=== PATIENT | female | born 1940 | race Caucasian/White ===

== ENCOUNTER 2020-02-21 14:38 | Inpatient (IN) | payer MEDICARE, SELFPAY ==
[2020-02-21] VITALS (17 sets, daily range): BP systolic 106–175; BP diastolic 67–100; PULSE 99–130; RESP 17–24; TEMP 35.6–36.3; O2SAT 91–95; BMI 26.6
--- NOTE | ~2020-02-21 | XR_ITS ---
EXAMINATION: XR chest PICC line DATE: 02/24/2020 17:59 INDICATION: PICC line placement TECHNIQUE: frontal view of the chest was obtained. COMPARISON: Chest radiograph dated 02/24/2020 at 4:59 AM FINDINGS: Right upper extremity peripherally inserted central venous catheter (PICC) tip at the caudal superio r vena cava near the cavoatrial junction. Endotracheal tube tip 0.7 cm above the joseph. Nasogastric tube extends below the left hemidiaphragm with distal tip collimated off the study. Spinal stimulato r leads project over the mid to lower thoracic spine with distal tips at the level of the T6 vertebra l body. Gradient of hazy airspace opacities in the bilateral mid to lower lung zones with obscuration of the diaphragm consistent with small to moderate size bilateral posteriorly layering pleural effusions. Co nsolidation at the lung bases which could represent associated atelectasis and/or pneumonia. No pneum othorax. The cardiomediastinal silhouette is normal. IMPRESSION: 1. Lines and tubes in expected position as detailed above. 2. Unchanged small to moderate size bilateral pleural effusions with associated bibasilar atelectasis and/or pneumonia. Reviewed, dictated and finalized at location A.
--- NOTE | ~2020-02-21 | CT_ITS ---
EXAMINATION: CTA chest PE protocol DATE: 02/21/2020 16:49 INDICATION: Shortness of breath and elevated d-dimer TECHNIQUE: Computed tomography angiography (CTA) of the chest was performed with 100 mL Omnipaque-350 intravenous contrast timed to evaluate the pulmonary arteries. Coronal maximum intensity projection 3D-reconstructions were created by the technologist. The dose-length product (DLP) was 211.96 mGy-cm. Automated exposure control and iterative reconstruction technique were employed. COMPARISON: None. FINDINGS: The pulmonary arteries are well-opacified. Motion artifact limits evaluation of peripheral subsegmental pulmonary arterial branches. There are small pleural effusions. Airspace opacities are p resent in the lower lobes. There is a moderate-sized hiatal hernia. The heart size is normal. No path ologically enlarged thoracic lymph nodes are identified. There is a 4.3 cm cyst of the left kidney. N eurostimulator leads are present in the central spinal canal the midthoracic spine. IMPRESSION: 1. No pulmonary embolism identified, sensitivity of peripheral subsegmental arterial branches limited by motion artifact. 2. Small pleural effusions. 3. Airspace opacities of the lower lobes, likely atelectasis and pneumonia. Reviewed, dictated and finalized at location A. IMPRESSION: 1. No pulmonary embolism identified, sensitivity of peripheral subsegmental art erial branches limited by motion artifact. 2. Small pleural effusions. 3. Airspace opacities of the lower lobes, likely atelectasis and pneumonia.
--- NOTE | ~2020-02-21 | XR_ITS ---
EXAMINATION: XR chest 1V portable EXAM DATE: 02/24/2020 06:07 INDICATION: Intubated. Respiratory failure. TECHNIQUE: Portable AP frontal chest x-ray was obtained. Comparison is made to prior examination from 02/23/2020, 02/20. FINDINGS: Endotracheal tube tip is 2 centimeters above the joseph (ideal range is between 2 to 5 cm). There is a nasogastric tube seen with tip collimated off the study, but below the left hemidiaphrag m. There are small to moderate bilateral layering pleural effusions. There is moderate amount of bilater al infrahilar edema and/or pneumonia. No pneumothorax. Cardiomediastinal silhouette is normal. The macy goldy are osteopenic. There are bony degenerative changes. Spine stimulator leads. Pleural effusions m ay have increased in size. IMPRESSION: 1. Moderate amount of bibasilar pneumonia and/or edema. 2. Small to moderate pleural effusions. Reviewed, dictated and finalized at location A.
--- NOTE | ~2020-02-21 | XR_ITS ---
EXAMINATION: XR chest ET placement EXAM DATE: 02/23/2020 10:36 INDICATION: Intubated. Respiratory failure. TECHNIQUE: Portable AP frontal chest x-ray was obtained. Comparison is made to prior examination from 02/21/2020. FINDINGS: Endotracheal tube tip is 1-2 centimeters above the joseph (ideal range is between 2 to 5 cm ). There is a nasogastric tube seen with tip collimated off the study, but below the left hemidiaphr agm. There are small bilateral pleural effusions unchanged. There has been development of moderate amount of bilateral infrahilar edema and/or pneumonia. No pneumothorax. Cardiomediastinal silhouette is norm al. The bones are osteopenic. There are bony degenerative changes. IMPRESSION: 1. ET tube above joseph, could be safely retracted 1 cm. 2. Developing moderate amount of bibasilar pneumonia and/or edema. 3. Small pleural effusions. Reviewed, dictated and finalized at location A.
--- NOTE | ~2020-02-21 | XR_ITS ---
XR chest 1V portable EXAM DATE: 02/27/2020 06:28 INDICATION: Intubated. Respiratory failure. TECHNIQUE: Portable AP frontal chest x-ray was obtained. Comparison is made to prior examination from 02/25. FINDINGS: Endotracheal tube tip is 1 centimeters above the joseph (ideal range is between 2 to 5 cm). There is a left-sided PICC line with tip projecting over the cavoatrial junction. Feeding tube tip and side-port project over the gastric bubble, adequate. Previously suspected small to moderate moderate pleural effusions may still be present but in subpulm onic position on this semiupright projection. No evidence of free air under the diaphragm. There is m oderate amount of bilateral infrahilar edema and/or pneumonia. No pneumothorax. The cardiac silhouett e is enlarged. The bones are osteopenic. There are bony degenerative changes. Spine stimulator lead s. Similar appearance on this examination compared to 02/24 x-ray. Compared to 02/25 appearance somewhat i mproved but could be partially technical. IMPRESSION: 1. Moderate bilateral pneumonia and/or edema. 2. Probable small to moderate subpulmonic pleural effusions. Reviewed, dictated and finalized at location A.
--- NOTE | ~2020-02-21 | XR_ITS ---
XR chest 1V portable EXAM DATE: 02/26/2020 04:22 INDICATION: Intubated. Respiratory failure. TECHNIQUE: Portable AP frontal chest x-ray was obtained. Comparison is made to prior examination from 02/23. FINDINGS: Endotracheal tube tip is 1 centimeters above the joseph (ideal range is between 2 to 5 cm). There is a nasogastric tube seen with tip collimated off the study, but below the left hemidiaphrag m. There is a left-sided PICC line with tip projecting over the cavoatrial junction. There are moderate bilateral layering pleural effusions. There is extensive amount of bilateral infra hilar edema and/or pneumonia. No pneumothorax. The cardiac silhouette is enlarged. The bones are os teopenic. There are bony degenerative changes. Spine stimulator leads. Compared to 02/24, significant progression in opacification over lung zones, likely a pleural effusion s and acute airspace disease. Cardiac silhouette is larger, others more pulmonary vascular congestion . IMPRESSION: 1. Progression of extensive pneumonia and/or edema and likely increasing pleural effusions. 2. Small to moderate pleural effusions. Reviewed, dictated and finalized at location A. IMPRESSION: 1. Progression of extensive pneumonia and/or edema and likely increasing pleur al effusions. 2. Small to moderate pleural effusions.
--- NOTE | ~2020-02-21 | XR_ITS ---
XR chest 1V portable EXAM DATE: 02/28/2020 06:07 INDICATION: Intubated. Respiratory failure. TECHNIQUE: Portable AP frontal chest x-ray was obtained. Comparison is made to prior examination from 02/25, 02/26. FINDINGS: Endotracheal tube tip is 2 centimeters above the joseph (ideal range is between 2 to 5 cm). There is a left-sided PICC line with tip projecting over the cavoatrial junction. Feeding tube tip and side-port project over the gastric bubble, adequate. Small to moderate right pleural effusion. There is moderate amount of bilateral perihilar edema and/o r pneumonia. No pneumothorax. The cardiac silhouette is enlarged. The bones are osteopenic. There a re bony degenerative changes. Spine stimulator leads. Accounting for differences in technique, there is no significant interval change. IMPRESSION: 1. Moderate perihilar pneumonia and/or edema. 2. Small to moderate right pleural effusion. Reviewed, dictated and finalized at location A.
--- NOTE | ~2020-02-21 | XR_ITS ---
EXAMINATION: XR chest 2V DATE: 02/21/2020 15:44 INDICATION: Shortness of breath, COPD TECHNIQUE: PA and lateral views of the chest are obtained. COMPARISON: 06/19/2017 FINDINGS: The lungs are hyperinflated. There are airspace opacities of the lung bases. Small pleural effusions are present. There is no pneumothorax. The cardiomediastinal silhouette is normal. There is mild thoracic spondylosis. Spine stimulator leads project posteriorly in the central spinal canal of the mid thoracic spine. IMPRESSION: 1. Small pleural effusions. 2. Minimal bibasilar airspace opacities, likely atelectasis. Reviewed, dictated and finalized at location A.
--- NOTE | ~2020-02-21 | CT_ITS ---
EXAMINATION: CT brain wo con DATE: 02/27/2020 14:35 INDICATION: Encephalopathy. TECHNIQUE: Computed tomography (CT) of the head was performed without intravenous contrast. The mA wa s adjusted according to patient size. Iterative reconstruction technique was employed. The dose-lengt h product was 605.33 mGy-cm. COMPARISON: None FINDINGS: There is a 3.4 x 3.3 cm arachnoid cyst anterior to left temporal lobe. There are scattered areas of low attenuation in the cerebral white matter. There is no intracranial hemorrhage, acute inf arction, or abnormal intracranial mass lesion. The ventricles are normal in size. The paranasal sinus es are clear. There is a trace right mastoid effusion. The orbits are normal. IMPRESSION: 1. Extensive nonspecific cerebral white matter disease, which likely represents chronic small vessel ischemic disease. Reviewed, dictated and finalized at location A.
--- NOTE | ~2020-02-21 | XR_ITS ---
EXAMINATION: XR abdomen NG/feed tube insert EXAM DATE: 02/23/2020 10:36 INDICATION: Feeding placement. TECHNIQUE: Frontal projection(s) of the abdomen for interpretation. There is no prior study for maria tenorio. FINDINGS: Feeding tube tip and side-port project over gastric body and cardia respectively, adequate . There is spine stimulator device. Nonobstructive upper abdominal bowel gas pattern. Moderate lumbar levoscoliosis. IMPRESSION: 1. Feeding tube in position. Reviewed, dictated and finalized at location A.
--- NOTE | ~2020-02-21 | XR_ITS ---
EXAMINATION: XR abdomen obstructive series EXAM DATE: 02/28/2020 08:04 INDICATION: Distended abdomen. TECHNIQUE: Frontal projection(s) of the abdomen for interpretation. Comparison is made to prior exami nation from 02/22. FINDINGS: Feeding tube is in position. Interval development of moderate to large amount of colonic ga s throughout the colon, with paucity of stool. No evidence of small bowel dilation/obstruction. There is no organomegaly. The bones are osteopenic. There are bony degenerative changes. Spine stimulator device. IMPRESSION: Moderate to large amount of colonic gas. Reviewed, dictated and finalized at location A.
--- NOTE | ~2020-02-21 | XR_ITS ---
EXAMINATION: XR chest 1V portable EXAM DATE: 02/25/2020 06:02 INDICATION: Intubated. Respiratory failure. TECHNIQUE: Portable AP frontal chest x-ray was obtained. Comparison is made to prior examination from 02/23. FINDINGS: Endotracheal tube tip is 2 centimeters above the joseph (ideal range is between 2 to 5 cm). There is a nasogastric tube seen with tip collimated off the study, but below the left hemidiaphrag m. There is a left-sided PICC line with tip projecting over the cavoatrial junction. There are small to moderate bilateral layering pleural effusions. There is moderate amount of bilater al infrahilar edema and/or pneumonia. No pneumothorax. Cardiomediastinal silhouette is normal. The macy goldy are osteopenic. There are bony degenerative changes. Spine stimulator leads. There is no signifi cant interval change. IMPRESSION: 1. Moderate amount of bibasilar pneumonia and/or edema. 2. Small to moderate pleural effusions. Reviewed, dictated and finalized at location A.
--- NOTE | ~2020-02-21 | XR_ITS ---
XR chest 1V portable EXAM DATE: 02/29/2020 06:16 INDICATION: Intubated. Respiratory failure. TECHNIQUE: Portable AP frontal chest x-ray was obtained. Comparison is made to prior examination from 02/27. FINDINGS: Endotracheal tube tip is 3 centimeters above the joseph (ideal range is between 2 to 5 cm). There is a left-sided PICC line with tip projecting over the cavoatrial junction. There is a nasoga stric tube seen with tip collimated off the study, but below the left hemidiaphragm. Small to moderate right, small left pleural effusions. There is moderate amount of bilateral perihila r edema and/or pneumonia. No pneumothorax. The cardiac silhouette is enlarged. The bones are osteope marialuisa. There are bony degenerative changes. Spine stimulator leads. Accounting for differences in technique, there is no significant interval change. IMPRESSION: 1. Moderate perihilar pneumonia and/or edema. 2. Small to moderate right, small left pleural effusions. Reviewed, dictated and finalized at location A.
--- NOTE | 2020-02-21 14:54 | ECG_ITS ---
Measurements Intervals [place] Rate: 123 P: -11 WV: 156 QRS: -20 QRSD: 96 T: -2 QT: 307 QTc: 440 Interpretive Statements SINUS TACHYCARDIA SUPRAVENTRICULAR TRIGEMINY BORDERLINE T WAVE ABNORMALITY- INFERIOR LEADS BASELINE WANDER- I, III, V2, V5-V6 ABNORMAL ECG Electronically Signed On 02-21-2020 17:05:43 CDT by Jose Moseley D.O.
[2020-02-21] MEDS: ALBUTEROL SULFATE NEB 2.5 MG/0.5 ML INH 5 MG INHALATION (15:19)
[2020-02-21] MEDS: IPRATROPIUM BR 0.02% INH SOLN 0.5 MG/2.5 ML VIAL INHALATION ×2 (15:19→21:15)
[2020-02-21 15:20] LABS: Basophils Percent Auto 0.4 % (0.2-1.2); Eosinophils Percent Auto 0.3 % (0-4.4); Hematocrit 33.7 % (37.0-47.0); Hemoglobin 10.9 g/dL (12.0-15.0); Immature Granulocyte Absolute 0.04 K/mm3 (0.00-0.031); Immature Granulocyte Percent A 0.4 % (0-0.5); Lymphocytes Absolute Auto 1.52 K/mm3 (0.9-3.2); Lymphocytes Percent Auto 14.5 % (18.3-44.2); Mean Corpuscular HGB Conc 32.3 g/dl (32-36); Mean Corpuscular Hemoglobin 33.1 pg (26-34); Mean Corpuscular Volume 102.4 fl (80-100); Mean Platelet Volume 10.1 fl (7.4-10.4); Monocytes Absolute Auto 1.2 K/mm3 (0.1-0.6); Monocytes Percent Auto 11.1 % (2.6-8.5); Neutrophils Absolute Auto 7.7 K/mm3 (1.3-6.7); Neutrophils Percent Auto 73.3 % (45.5-73.1); Nucleated Red Blood Cells Perc 0.2 % (0.0-0.2); Platelet Count Result 172 k/mm3 (150-375); Red Blood Count 3.29 M/mm3 (4.2-5.4); Red Cell Distribution Width 15.5 % (11.5-14.5); White Blood Count 10.5 K/mm3 (4.5-10.0)
[2020-02-21 15:26] LABS: Alveolar/Arterial O2 Gradient 60.1 mmHg; Base Excess ABG -0.4 mEq/l (+/-2.0); Carboxyhemoglobin 0.3 % THb (0-2.0); Fractional Inspired Oxygen 21 %; HCO3 ABG 21.7 mEq/l (22.0-26.0); Oxygen Content ABG 14.3 %vol (16.0-22.0); Oxygen Saturation ABG 92.5 % (95.0-100.0); Oxyhemoglobin 90.7 % THb (90.0-100.0); PCO2 ABG 27.6 mmHg (35.0-45.0); PO2 ABG 56.6 mmHg (80.0-100.0); Total Hemoglobin 11.2 g/dL (12.0-18.0)
[2020-02-21 15:27] LABS: Device ROOM AIR; Site Drawn RIGHT BRACHIAL; pH ABG 7.513 (7.350-7.450)
[2020-02-21 15:32] LABS: D Dimer 0.89 ug/mL (<0.48)
[2020-02-21 15:33] LABS: Anion Gap 11 mmol/L (8-16); Blood Urea Nitrogen 21 mg/dL (7-17); Calcium 9.2 mg/dL (8.4-10.2); Carbon Dioxide 23 mmol/L (22-30); Chloride 101 mmol/L (98-107); Estimated Glomerular Filt Rate 43; Glucose 110 mg/dL (65-105); Potassium 3.7 mmol/L (3.4-5.0); Sodium 135 mmol/L (137-145)
--- NOTE | 2020-02-21 15:41 | ED.SOB ---
HPI - SOB/Dyspnea General Chief Complaint: Shortness of Breath/Dyspnea Stated Complaint: sob Time Seen by Provider: 02/21/20 14:58 Source: patient Mode of arrival: ambulatory Limitations: no limitations History of Present Illness HPI Narrative: Patient is a 80-year-old female complaining of shortness of breath, started 3 days ago. Patient has a history of COPD but not on any home O2. Patient denies any fever chest pain cough abdominal pain nausea vomiting diarrhea or fever. Related Data Home Medications Medication Instructions Recorded Confirmed tizanidine 2 mg tablet 2 mg PO Q8H PRN tablet 01/28/20 01/28/20 Allergies Allergy/AdvReac Type Severity Reaction Status Date / Time Sulfa (Sulfonamide Allergy Severe rash Verified 02/21/20 14:48 Antibiotics) lisinopril Allergy Intermediate Unknown Verified 02/21/20 14:49 Penicillins Allergy Mild Rash Verified 02/21/20 14:48 Review of Systems Review of Systems: All systems reviewed & are unremarkable except as noted in HPI and below Constitutional: Constitutional: Denies body ache(s), Denies chills, Denies excessive sweating, Denies fatigue, Denies fever(s), Denies headache(s), Denies lethargy, Denies malaise, Denies weakness and Denies weight loss Eyes: Eyes: Denies blurry vision, Denies change in vision and Denies loss of vision ENT: Denies dizziness, Denies ear discharge, Denies headache(s), Denies lip swelling, Denies epistaxis, Denies nasal congestion, Denies neck pain, Denies throat swelling and Denies tongue swelling Cardiovascular: Cardiovascular: Denies chest pain, Denies chest pain at rest, Denies chest pain with activity, Denies diaphoresis, Denies rapid heart rate, Denies edema, Denies irregular heart rhythm, Denies lightheadedness and Denies palpitations Respiratory: Respiratory: Denies chest congestion, Denies cough and Denies hemoptysis Gastrointestinal: Gastrointestinal: Denies abdominal pain, Denies melena, Denies hematochezia, Denies diarrhea, Denies nausea, Denies vomiting and Denies hematemesis Musculoskeletal: Musculoskeletal: Denies abnormal gait, Denies deformity, Denies joint swelling, Denies limited range of motion, Denies neck pain and Denies numbness Neurologic: Denies Abnormal speech present, Denies abnormal gait, Denies confusion, Denies dizziness, Denies headache(s), Denies focal weakness, Denies loss of vision, Denies numbness, Denies Other visual disturbances, Denies Sensory deficit (Neuro) and Denies weakness Psychiatric: Psychiatric: Denies confusion, Denies depression, Denies auditory hallucinations, Denies homicidal ideation and Denies suicidal ideation Endocrine: Endocrine: Denies cold intolerance, Denies excessive sweating, Denies fatigue, Denies heat intolerance and Denies palpitations Hematologic/Lymphatic: Hematologic/Lymphatic: Denies easy bleeding and Denies easy bruising Allergic/Immunologic: Allergic/Immunologic: Denies lip swelling, Denies throat swelling and Denies tongue swelling PMF Past Medical History Medical History (Updated 02/21/20 @ 18:02 by Dani Cowan MD) Renal cyst, left Social History Social History Second hand tobacco smoke exposure: No Alcohol intake: never Gender identity (if verbalized by the patient): Female Exam Const: General: cooperative, healthy appearing, comfortable, well developed, alert and awake; No confusion Orientation/consciousness: oriented to person, oriented to place, oriented to time, patient oriented x3 and No confusion Limitations: no limitations HENMT: Head: normal to inspection, normocephalic and atraumatic Ears: hearing grossly normal bilaterally, TM normal on the right and TM normal on the left General nose exam: Normal external nose present, Normal nares present and No nasal discharge present Face and sinus: normal facial exam Mouth: Yes Normal oral and palatal mucosa present, Yes lip normal, Yes tongue normal and Yes oropharynx normal Throat: posterior oroph
[2020-02-21 15:45] LABS: NT Pro B Type Natriuretic Pept 6110 PG/ML (5-100); Troponin I < 0.012 ng/mL (0.000-0.034)
[2020-02-21] MEDS: methylPREDNISolone SOD SUCC 125 MG VIAL IV PUSH (16:09)
[2020-02-21 18:04] LABS: Lactic Acid Reflex 1.8 mmol/L (0.7-2.1)
--- NOTE | 2020-02-21 20:46 | ADMIMU ---
This patient, Amber Hancock, was admitted to IMU status, and placed in Intensive Care Unit-6 at 2034. Patient/family oriented to hospital policies and general routines including ID bracelet, bed and alarms, visiting hours, pain management, procedures, bathroom and other care routines, personal items, smoking policy, room service/diet, and visiting hours. Valuables list has been completed. Information on how to activate the Rapid Response Team has been discussed. Patient/Family are encouraged to report perceived risks to care and to ask questions if they do not understand what they are told or what they should do.
[2020-02-21] MEDS: LEVALBUTEROL NEB 1.25 MG/3 ML 0.63 MG INHALATION (21:15)
[2020-02-21] MEDS: LACTATED RINGERS 1,000 ML 75 ML IV CONT (21:27)
[2020-02-22] VITALS (11 sets, daily range): BP systolic 128–162; BP diastolic 66–106; PULSE 50–130; RESP 16–91; TEMP 36.2–37; O2SAT 90–94
--- NOTE | 2020-02-22 00:28 | PM.IMHP ---
H&P: HPI History of Present Illness Date/Time: 02/22/20 00:28 Chief complaint: PNEUMONIA, COPD EXACERB Narrative: This is a pleasant 80 year old female with known COPD and chronic back pain who presented to the hospital with a complaint of exertional dyspnea for the past 3 days. The patient just was tested for Coronavirus and expects the results will be back on Sunday. She denies any fevers, chills, cough, sore throat, chest pain, abdominal pain, dysuria, hematuria, headache, LE swelling, rectal bleeding, or wheezing. She was evaluated in the ER and was found to be hypoxic on room air. She was placed on supplemental oxygen and CXR demonstrated b/l pleural effusions. Review of Systems Review of Systems: All systems reviewed & are unremarkable except as noted in HPI and below PMFSH Past Medical History Medical History Chronic obstructive pulmonary disease, unspecified Hypertension Lumbosacral spondylosis with radiculopathy Renal cyst, left Family History Family History Father Acute myocardial infarction Asthma Mother Congestive heart failure Diabetes mellitus Sibling Diabetes mellitus Other Hypertension Social History Social History Smoking packs per day: 1 Smoking cigarettes per day: 20.0 Smoking status: Former smoker Tobacco type: cigarettes Second hand tobacco smoke exposure: No Smoking end date: 05/28/04 Alcohol intake: current Drinks per week: 1 Substance use: never Gender identity (if verbalized by the patient): Female Spiritual care concerns: No Meds Home Medications and Allergies Home Medications Medication Instructions Recorded Confirmed Type ascorbic acid (vitamin C) 500 mg 500 mg PO .qd #30 cap 04/02/19 02/21/20 Rx capsule cholecalciferol (vitamin D3) 10 400 unit PO DAILY #30 cap 04/02/19 02/21/20 Rx mcg (400 unit) capsule multivitamin 1 cap PO DAILY #30 cap 04/02/19 02/21/20 Rx vitamin B12 1,000 mcg-folic acid See Rx Instructions SUBLINGUAL 04/02/19 02/21/20 Rx 400 mcg sublingual lozenge .COMPLEX #30 each vitamin E (dl, acetate) 400 unit 400 unit PO DAILY #30 cap 04/02/19 02/21/20 Rx capsule escitalopram oxalate 20 mg tablet 20 mg PO DAILY #90 tablet 09/09/19 02/21/20 Rx amlodipine 5 mg tablet 5 mg PO DAILY #90 tablet 12/02/19 02/21/20 Rx diclofenac sodium 1 % topical gel 4 gm TOPICAL QID 30 Days #450 gm 01/19/20 02/21/20 Rx budesonide-formoterol HFA 160 2 puff INHALATION Q12H #10.2 gm 02/15/20 02/21/20 Rx mcg-4.5 mcg/actuation aerosol inhaler alprazolam 0.25 mg tablet 0.25 mg PO .HS 90 Days #90 tablet 02/17/20 02/21/20 Rx Allergies Allergy/AdvReac Type Severity Reaction Status Date / Time Sulfa (Sulfonamide Allergy Severe rash Verified 02/21/20 14:48 Antibiotics) lisinopril Allergy Intermediate Unknown Verified 02/21/20 14:49 Penicillins Allergy Mild Rash Verified 02/21/20 14:48 Vital Signs Vital Signs - 24 hr 02/21/20 14:43 02/21/20 15:06 02/21/20 15:19 Temperature 36.3 C L Pulse Rate 120 H 99 Respiratory Rate 22 H 20 Blood Pressure 106/78 Pulse Oximetry 93 94 02/21/20 15:30 02/21/20 16:09 02/21/20 16:57 Temperature Pulse Rate 101 H 122 H 123 H Respiratory Rate 20 17 23 H Blood Pressure 175/97 H 139/100 H Pulse Oximetry 95 94 02/21/20 17:22 02/21/20 17:54 02/21/20 18:19 Temperature Pulse Rate 124 H 119 H 120 H Respiratory Rate 17 19 Blood Pressure 155/67 H 125/77 Pulse Oximetry 91 94 94 02/21/20 19:59 02/21/20 20:00 02/21/20 20:44 Temperature Pulse Rate 120 H 130 H 103 H Respiratory Rate 22 H Blood Pressure 131/82 Pulse Oximetry 95 02/21/20 20:48 02/21/20 21:10 02/21/20 21:16 Temperature 35.6 C L Pulse Rate 122 H 111 H 111 H Respiratory Rate 24 H 20 20 Blood Pressure 142/85 H Pulse Oximet
--- NOTE | 2020-02-22 01:24 | PC.NURSE ---
Pt transferring to room 332 via hospital bed. Personal belongings sent with pt. Report called to YESENIA Sanchez.
[2020-02-22] MEDS: MELATONIN 3 MG TABLET PO ×2 (02:37→23:40)
--- NOTE | 2020-02-22 02:59 | PC.NURSE ---
0155 Pt arrived to room 332-2 from ICU. Denies any discomfort. No sign/symptom respiratory difficulty/distress. O2 at 2L per nasal cannula.
[2020-02-22 09:20] LABS: Basophils Percent Auto 0.1 % (0.2-1.2); Hematocrit 30.4 % (37.0-47.0); Hemoglobin 9.9 g/dL (12.0-15.0); Immature Granulocyte Absolute 0.06 K/mm3 (0.00-0.031); Immature Granulocyte Percent A 0.6 % (0-0.5); Lymphocytes Absolute Auto 0.79 K/mm3 (0.9-3.2); Lymphocytes Percent Auto 8.5 % (18.3-44.2); Mean Corpuscular HGB Conc 32.6 g/dl (32-36); Mean Corpuscular Hemoglobin 32.6 pg (26-34); Mean Platelet Volume 10.2 fl (7.4-10.4); Monocytes Absolute Auto 0.8 K/mm3 (0.1-0.6); Monocytes Percent Auto 8.1 % (2.6-8.5); Neutrophils Absolute Auto 7.7 K/mm3 (1.3-6.7); Neutrophils Percent Auto 82.7 % (45.5-73.1); Platelet Count Result 156 k/mm3 (150-375); Red Blood Count 3.04 M/mm3 (4.2-5.4); Red Cell Distribution Width 15.2 % (11.5-14.5); White Blood Count 9.3 K/mm3 (4.5-10.0)
[2020-02-22 09:37] LABS: Anion Gap 7 mmol/L (8-16); Blood Urea Nitrogen 18 mg/dL (7-17); Calcium 8.9 mg/dL (8.4-10.2); Carbon Dioxide 25 mmol/L (22-30); Chloride 102 mmol/L (98-107); Estimated CRCL calculation 33 ml/min; Estimated Glomerular Filt Rate 53; Glucose 138 mg/dL (65-105); Potassium 4.2 mmol/L (3.4-5.0); Sodium 134 mmol/L (137-145)
[2020-02-22] MEDS: LACTATED RINGERS 1,000 ML 75 ML IV CONT (09:41)
[2020-02-22 10:06] LABS: CRP 16.6 mg/dL (<1.0); Lactate Dehydrogenase 539 U/L (313-618)
--- NOTE | 2020-02-22 10:29 | PM.IMPN ---
Progress Note: A&P Assessment and Plan (1) COPD exacerbation: Code(s): J44.1 - Chronic obstructive pulmonary disease with (acute) exacerbation Status: Acute Assessment and Plan: CXR shows hyperinflated lungs. She is wheezing, SOB, and complains of FRANCO. Increased work of breathing noted on exam. She is maintaining adequate oxygenation on 2L Begin solumedrol 60 mg IV q6H Resume symbicort Continue levalbuterol inhaler Supplemental O2 as needed with goal saturation 90% or above. (2) CAP (community acquired pneumonia): Code(s): J18.9 - Pneumonia, unspecified organism Status: Acute Assessment and Plan: CXR and CTA show airspace opacities of the lower lobes, consistent with pneumonia. Viral vs. bacterial. Awaiting results of COVID-19 test. Begin azithromycin and rocephin Supportive care; tylenol as needed, guaifenesin, and supplemental O2 Blood cultures pending (3) Person under investigation for COVID-19: Code(s): Z20.828 - Contact with and (suspected) exposure to other viral communicable diseases Status: Acute Assessment and Plan: Tested for COVID-19 at outside facility on 02/19/20. Expects results tomorrow. Continue isolation precautions Await results of covid-19 test Trend acute phase reactants (4) Hypertension: Code(s): I10 - Essential (primary) hypertension Status: Acute Assessment and Plan: Blood pressure reviewed today and is generally well controlled in the 130-140s systolic. Continue amlodipine Monitor blood pressure (5) Lumbosacral spondylosis with radiculopathy: Code(s): M47.27 - Other spondylosis with radiculopathy, lumbosacral region Status: Acute Assessment and Plan: She had a nerve stimulator implanted in November. She just completed rehab at [facility]. Analgesics as needed (6) Small pleural effusion: Code(s): J90 - Pleural effusion, not elsewhere classified Status: Acute Assessment and Plan: Bilateral. Seen on CXR and CTA. BNP is elevated, suggesting CHF, which could be etiology of pleural effusion. Fluids have been discontinued Echo is pending (7) Tachycardia: Code(s): R00.0 - Tachycardia, unspecified Status: Acute Assessment and Plan: Patient is tachycardic. Review of telemetry shows HR ranging 100-110 with occasionally up to 130s, which seems to occur with exertion. Occasional PVCs seen on monitor. EKG at presentation shows sinus tachycardia with supraventricular trigeminy. No prior EKGs available for review. She complains of palpitations Will initiate low dose beta katherin. Begin metoprolol tartrate 12.5 mg BID as tolerated by HR and BP. Continue to monitor on telemetry Subjective Date/time seen: 02/22/20 10:29 Interval history: Date of service: 02/22/2020 Amber Hancock is a 80 year old female with a history of COPD who is seen in follow up for suspected COPD exacerbation. She is extremely short of breath throughout my encounter and often has to pause to respond to catch her breath. She had just been up to the commode and said it takes her a while to recover from any activity. She reports occasional nonproductive cough. She has significant FRANCO and endorses orthopnea and wheezing. She also complains of palpitations. She denies chest pain or tightness. She denies headache, dizziness, lightheadedness, weakness, nausea, vomiting, fever, chills, or abdominal pain. She had a BM yesterday. Appetite has been fair. She reports that she has been experiencing FRANCO for about 25 years but this has significantly worsened the past 2 days. She has no additional concerns. Review of Systems Review of Systems: Narrative: 12 systems reviewed with pertinent positives and negatives as per HPI. Exam Narrative: Exam Narrative: Ms. Hancock is a well nourished 80 year old female who is lying semi-recumbent in bed. She is in
[2020-02-22] MEDS: methylPREDNISolone SOD SUCC 125 MG VIAL 60 MG IV PUSH ×3 (13:47→23:53)
[2020-02-22] MEDS: ALPRAZolam (*CRX) 0.25 MG TABLET PO (20:15)
[2020-02-22] MEDS: METOPROLOL TARTRATE 12.5 MG TABLET PO (20:16)
[2020-02-22] MEDS: guaiFENesin 12 HR 600 MG TABCR PO (20:16)
[2020-02-22] MEDS: LEVALBUTEROL HFA (*SP) 15 GM INHALER 2 PUFF INHALATION (22:33)
[2020-02-23] VITALS (24 sets, daily range): BP systolic 116–154; BP diastolic 41–108; PULSE 77–129; RESP 14–31; TEMP 35.1–37.5; O2SAT 88–100
[2020-02-23] MEDS: LEVALBUTEROL HFA (*SP) 15 GM INHALER 2 PUFF INHALATION (02:03)
[2020-02-23 02:19] LABS: Alveolar/Arterial O2 Gradient 222.9 mmHg; Base Excess ABG -3.8 mEq/l (+/-2.0); Fractional Inspired Oxygen 45 %; HCO3 ABG 20.6 mEq/l (22.0-26.0); Oxygen Content ABG 14.9 %vol (16.0-22.0); Oxygen Saturation ABG 89.8 % (95.0-100.0); Oxyhemoglobin 87.8 % THb (90.0-100.0); PCO2 ABG 35.5 mmHg (35.0-45.0); PO2 ABG 57.6 mmHg (80.0-100.0); PO2 FiO2 Ratio Arterial Blood 1.28 %; Total Hemoglobin 12.1 g/dL (12.0-18.0); pH ABG 7.382 (7.350-7.450)
[2020-02-23 02:21] LABS: Device NASAL CANNULA; Modified Allen's Test Pass; Site Drawn RIGHT RADIAL
--- NOTE | 2020-02-23 03:07 | PC.NURSE ---
This patient, Amber Hancock, was transferred to [ ICU] on 02/23/20 at 0245. Personal belongings sent with patient. Belongings list checked and signed with receiving [ ]. Report given to [ ]. Appropriate documentation sent with patient.
[2020-02-23 05:18] LABS: Base Excess ABG -2.2 mEq/l (+/-2.0); Fractional Inspired Oxygen 60 %; HCO3 ABG 21.9 mEq/l (22.0-26.0); Oxygen Content ABG 15.5 %vol (16.0-22.0); Oxygen Saturation ABG 94.5 % (95.0-100.0); Oxyhemoglobin 92.3 % THb (90.0-100.0); PCO2 ABG 35.5 mmHg (35.0-45.0); PO2 ABG 70.8 mmHg (80.0-100.0); PO2 FiO2 Ratio Arterial Blood 1.18 %; Total Hemoglobin 11.9 g/dL (12.0-18.0); pH ABG 7.409 (7.350-7.450)
[2020-02-23 05:20] LABS: Modified Allen's Test Pass; Site Drawn RIGHT RADIAL
[2020-02-23 05:21] LABS: Device HIGH FLOW THERAPY
[2020-02-23] MEDS: methylPREDNISolone SOD SUCC 125 MG VIAL 60 MG IV PUSH ×3 (06:14→18:31)
[2020-02-23 07:04] LABS: Hematocrit 32.3 % (37.0-47.0); Hemoglobin 10.7 g/dL (12.0-15.0); Mean Corpuscular HGB Conc 33.1 g/dl (32-36); Mean Corpuscular Hemoglobin 33.3 pg (26-34); Mean Corpuscular Volume 100.6 fl (80-100); Mean Platelet Volume 10.9 fl (7.4-10.4); Platelet Count Result 190 k/mm3 (150-375); Red Blood Count 3.21 M/mm3 (4.2-5.4); Red Cell Distribution Width 15.1 % (11.5-14.5); White Blood Count 11.6 K/mm3 (4.5-10.0)
[2020-02-23 07:15] LABS: Potassium 4.5 mmol/L (3.4-5.0)
[2020-02-23 07:19] LABS: Anion Gap 11 mmol/L (8-16); Blood Urea Nitrogen 29 mg/dL (7-17); Calcium 8.8 mg/dL (8.4-10.2); Carbon Dioxide 22 mmol/L (22-30); Chloride 100 mmol/L (98-107); Estimated CRCL calculation 35 ml/min; Estimated Glomerular Filt Rate 53; Glucose 133 mg/dL (65-105); Sodium 133 mmol/L (137-145)
--- NOTE | 2020-02-23 08:26 | PC.NURSE ---
This patient, Amber Hancock, was received from [facility] on 02/23/20 at 0245. Personal belongings list checked and signed. Patient/family oriented to unit policies and routines
[2020-02-23] MEDS: FENTANYL 2,500MCG/NS250ML(*CRX 2,500 MCG/250 ML BAG IV CONT (09:50)
[2020-02-23 12:00] LABS: SARS-CoV-2 RNA PCR Negative
--- NOTE | 2020-02-23 12:44 | WPDCNINT ---
Assessment and Plan Assessment and plan (1) Acute respiratory failure: Code(s): J96.00 - Acute respiratory failure, unspecified whether with hypoxia or hypercapnia Status: Acute Assessment and Plan: patient with acute respiratory failure likely related to pneumonia, COPD exacerbation, COVID-19 - patient was in impending respiratory failure, was intubated on 12/23/2019 - currently on CMV mode of ventilation - chest x-ray and ABGs reviewed, ventilator adjusted - continue azithromycin and ceftriaxone - will order bronchodilators - on fentanyl and Versed infusions for sedation, maintain RASS of 0 to -2, daily sedation vacation (2) Suspected 2019 novel coronavirus infection: Code(s): Z20.828 - Contact with and (suspected) exposure to other viral communicable diseases Status: Acute Assessment and Plan: SARS-CoV-2 PCR obtained and pending - continue droplet, airborne, contact isolation/precautions - will order inflammatory markers (3) CAP (community acquired pneumonia): Code(s): J18.9 - Pneumonia, unspecified organism Status: Acute Assessment and Plan: community-acquired pneumonia with acute respiratory failure - continue ceftriaxone and azithromycin - will obtain sputum cultures - blood cultures from 02/21/2020, negative x2 (4) Hypertension: Code(s): I10 - Essential (primary) hypertension Status: Acute Assessment and Plan: blood pressures have been within normal limits, post intubation on positive pressure ventilation - will hold antihypertensives at this time, if blood pressures are elevated will add 1 medication at a time (5) DVT prophylaxis: Code(s): Z29.9 - Encounter for prophylactic measures, unspecified Status: Acute Assessment and Plan: DVT prophylaxis: Lovenox stress ulcer prophylaxis: Protonix Additional Plan discussed with sons Paul and Pablo, her son Pablo will be the point person whose phone number is . Updated both of the sons with patient's condition and plan of care. I answered all questions. Code status: no CPR critical care time spent: 53 minutes Due to a high probability of clinically significant, life threatening deterioration, the patient required my highest level of preparedness to intervene emergently and I personally spent this critical care time directly and personally managing the patient. This critical care time included obtaining a history; examining the patient; pulse oximetry; ordering and review of studies; arranging urgent treatment with development of a management plan; evaluation of patient's response to treatment; frequent reassessment; and discussions with other providers. It was exclusive of separately billable procedures and treating other patients and teaching time. Please see Assessment and Plan section and the rest of the note for further information on patient assessment and treatment Home Health Physical Therapist Consult Note Consult date: 02/23/20 Time Seen: 07:04 Reason for consult: acute respiratory failure, pneumonia, COPD exacerbation with significant past medical history of COPD, essential hypertension, lumbosacral spondylosis with radiculopathy, renal cyst on the left side, presented the ED on 02/21/2020 with complains of worsening short of breath that started 3 days prior to admission brought her to the hospital. Patient was found to be saturating 88% on room air, CT chest showed no pulmonary embolism, airspace opacities of lower lobes, likely atelectasis and/or pneumonia beers small bilateral pleural effusions. Patient was transferred to the intermediate unit after her oxygen requirements had increased. This morning patient was on 65% FiO2 and 50 L flow rate. - I was seeing the patient for hospitalist group, with having to evaluate patient this morning. patient stated she was tired of breathing was tachypneic and was in impending respiratory failure. Discussed with patient [place]
[2020-02-23 12:47] LABS: Alveolar/Arterial O2 Gradient 567.6 mmHg; Base Excess ABG -4.8 mEq/l (+/-2.0); Fractional Inspired Oxygen 100 %; HCO3 ABG 21.2 mEq/l (22.0-26.0); Oxygen Content ABG 16.4 %vol (16.0-22.0); Oxygen Saturation ABG 97.2 % (95.0-100.0); Oxyhemoglobin 95.8 % THb (90.0-100.0); PCO2 ABG 43.1 mmHg (35.0-45.0); PO2 ABG 102.3 mmHg (80.0-100.0); PO2 FiO2 Ratio Arterial Blood 1.02 %; Total Hemoglobin 12.1 g/dL (12.0-18.0)
[2020-02-23 12:48] LABS: Device VENTILATOR; Site Drawn LEFT BRACHIAL
[2020-02-23 12:49] LABS: Arterial Blood Gas PEEP 5 cmH2O; Arterial Blood Gas Vent Mode CMV; Arterial Blood Gas Ventilator rate 18 /MIN
[2020-02-23 12:50] LABS: Arterial Blood Gas Pressure Support 0 cmH2O; Arterial Blood Gas Tidal Volume 300 ml
--- NOTE | 2020-02-23 13:10 | WPDPROCEDUR ---
Procedures Intubation Intubation Date: 02/23/20 Intubation Time: 09:34 A pre-procedural Time-Out was completed immediately before starting the procedure and confirmed: Patient Identification, Site, Procedure, Patient Position and the Availability of Requisite Equipment: Yes Sedative: etomidate Paralytic: rocuronium Laryngoscope: fiber optic video scope Assist device used: fiber optic device ET tube size: 7.5 Tube secured depth (cm): 23 Tube secured location: lips Tube placement confirmation: visualized tube passing through cords, equal breath sounds bilaterally and no breath sounds over epigastrium Patient tolerated procedure: well Intubation complications: none Additional comments: After obtaining consent from the patient and explaining the rationale for intubation. it was decided to go ahead and intubate the patient. The patient was lying in the supine position. Preoxygenation via BVM was provided for a minimum of 3 minutes. The patient had continuous cardiac as well as pulse oximetry monitoring during the procedure. Rapid sequence induction was provided by administration of Etomidate and Rocuronium. A Glidescope blade 4 was used to directly visualize the vocal cords. A 7.5 mm endotracheal tube was visualized advancing between the cords to a level of 23 cm at the lip. The stylette was then removed. Tube placement was also noted by fogging in the tube, equal and bilateral breath sounds, no sounds over the epigastrium, and end-tidal colorimetric monitoring. The cuff was then inflated with 10 ml of air and the tube secured using a commercially available device. A good pulse oximetry wave form was seen on the monitor throughout the procedure. The patient was then connected to the ventilator at a tidal volume of 300 ml; rate of 18; FiO2 of 100%; and PEEP of 5. A portable chest x-ray has been ordered for placement. Continued sedation will be provided by Fentanyl and Versed continuous infusion titrated to a RASS of -2. The patient tolerated the procedure well.
[2020-02-23] MEDS: guaiFENesin 12 HR 600 MG TABCR PO ×2 (13:52→22:22)
[2020-02-23 13:54] LABS: Lactic Acid Reflex 1.7 mmol/L (0.7-2.1)
[2020-02-23] MEDS: PANTOPRAZOLE SODIUM IV 40 MG VIAL IV PUSH (13:56)
[2020-02-23 13:58] LABS: Alanine Aminotransferase 99 U/L (4-35); Albumin Level 3.7 g/dL (3.5-5.1); Alkaline Phosphatase 85 U/L (38-126); Anion Gap 9 mmol/L (8-16); Aspartate Amino Transferase 105 U/L (14-36); Bilirubin,Total 0.6 mg/dL (0.2-1.3); Blood Urea Nitrogen 33 mg/dL (7-17); CRP 5.9 mg/dL (<1.0); Calcium 8.7 mg/dL (8.4-10.2); Carbon Dioxide 26 mmol/L (22-30); Chloride 99 mmol/L (98-107); Estimated CRCL calculation 32 ml/min; Estimated Glomerular Filt Rate 48; Glucose 145 mg/dL (65-105); Lactate Dehydrogenase 744 U/L (313-618); Magnesium 2.1 mg/dL (1.6-2.3); Phosphorus 4.9 mg/dL (2.5-4.5); Potassium 4.5 mmol/L (3.4-5.0); Sodium 134 mmol/L (137-145)
[2020-02-23 13:59] LABS: INR 1.2; Prothrombin Time 15.2 Seconds (11.1-14.7)
[2020-02-23 14:00] LABS: Partial Thromboplastin Time 28.1 SECONDS (22.3-36.8)
[2020-02-23 14:02] LABS: D Dimer 1.34 ug/mL (<0.48)
[2020-02-23] MEDS: IPRATROPIUM BR 0.02% INH SOLN 0.5 MG/2.5 ML VIAL INHALATION ×2 (15:02→20:26)
[2020-02-23] MEDS: LEVALBUTEROL NEB 1.25 MG/3 ML 0.63 MG INHALATION ×2 (15:03→20:26)
[2020-02-24] VITALS (34 sets, daily range): BP systolic 73–137; BP diastolic 55–98; PULSE 63–154; RESP 16–21; TEMP 36.6–37.1; O2SAT 94–100; BMI 28.1
[2020-02-24] MEDS: methylPREDNISolone SOD SUCC 125 MG VIAL 60 MG IV PUSH ×5 (00:08→23:50)
--- NOTE | 2020-02-24 00:27 | ECHO_ITS ---
Patient Info Name: Amber Hancock Age: 80 years : 1940 Gender: Female Ht: 60 in Wt: 136 lbs BSA: 1.63 m2 HR: 100 bpm BP: 115 / 61 mmHg Technical Quality: Good Exam Date: 02/24/2020 9:21 AM Exam Location: [facility] Pul[facility] Patient Status: Inpatient Admit Date: 02/22/2020 Staff Ordering Physician: Pablo Ramos MD Coding And Reimbursement Specialist: Gaston Hickey, MARK, RT Attending Provider: Ned Monterroso MD Referring Physician: Rachel KILLIAN; Exam Type: CA echo doppler color flow Study Info Indications J90 - Pleural effusion, not elsewhere classified Complete two-dimensional, color flow and Doppler transthoracic echocardiogram is performed. Summary 1. Complete two-dimensional, color flow and Doppler transthoracic echocardiogram is performed. 2. Left ventricular chamber dimension is normal. 3. Ventricular septum is sigmoid shaped. 4. Left ventricular systolic function is normal, estimated at 60-65%. 5. There is mildly increased left ventricular wall thickness. 6. The left ventricular diastolic function is abnormal. 7. E/e' 31 is significantly elevated. 8. Global longitudinal strain is abnormal at --14.3%. 9. Left atrial chamber dimension is moderately enlarged. 10. Right atrial chamber dimension is moderately enlarged. 11. There is moderate aortic valve sclerosis. 12. The mitral valve has moderately thickened leaflets and severely calcified annulus. 13. There is severe mitral valve regurgitation. 14. There is severe tricuspid valve regurgitation. 15. Moderate pulmonary hypertension, estimated pulmonary arterial systolic pressure is 56 mmHg. Left Ventricle E/e' 31 is significantly elevated. Global longitudinal strain is abnormal at --14.3%. Ventricular septum is sigmoid shaped. Left ventricular chamber dimension is normal. Left ventricular systolic function is normal, estimated at 60-65%. There is mildly increased left ventricular wall thickness. The left ventricular diastolic function is abnormal. Right Ventricle Right ventricular chamber dimension is not well visualized. Left Atria Left atrial chamber dimension is moderately enlarged. Right Atria Right atrial chamber dimension is moderately enlarged. Aortic Valve The aortic valve is trileaflet. There is moderate aortic valve sclerosis. There is no aortic valve stenosis. There is no aortic valve regurgitation. Pulmonic Valve There is no pulmonic regurgitation. Mitral Valve The mitral valve has moderately thickened leaflets and severely calcified annulus. There is no mitral valve stenosis. There is severe mitral valve regurgitation. Tricuspid Valve The tricuspid valve leaflets are not well visualized. There is severe tricuspid valve regurgitation. Moderate pulmonary hypertension, estimated pulmonary arterial systolic pressure is 56 mmHg. Pericardium/Pleural There is no pericardial effusion. Inferior Vena Cava Normal inferior vena cava with >50% collapse upon inspiration consistent with normal right atrial pressure, 5 mmHg. Aorta The aortic root size at the sinus of Valsalva is normal. Left Ventricular Outflow Tract Name Value Normal LVOT 2D LVOT Diameter 2.1 cm LVOT Doppler --------
[2020-02-24] MEDS: LEVALBUTEROL NEB 1.25 MG/3 ML 0.63 MG INHALATION ×4 (03:23→20:12)
[2020-02-24] MEDS: IPRATROPIUM BR 0.02% INH SOLN 0.5 MG/2.5 ML VIAL INHALATION ×4 (03:23→20:12)
[2020-02-24 05:37] LABS: Hematocrit 30.2 % (37.0-47.0); Hemoglobin 10.1 g/dL (12.0-15.0); Mean Corpuscular HGB Conc 33.4 g/dl (32-36); Mean Corpuscular Hemoglobin 33.3 pg (26-34); Mean Corpuscular Volume 99.7 fl (80-100); Mean Platelet Volume 11.2 fl (7.4-10.4); Platelet Count Result 152 k/mm3 (150-375); Red Blood Count 3.03 M/mm3 (4.2-5.4); Red Cell Distribution Width 14.7 % (11.5-14.5); White Blood Count 9.3 K/mm3 (4.5-10.0)
[2020-02-24 05:41] LABS: Alveolar/Arterial O2 Gradient 304.4 mmHg; Base Excess ABG -2.8 mEq/l (+/-2.0); Carboxyhemoglobin 0.3 % THb (0-2.0); Fractional Inspired Oxygen 60 %; HCO3 ABG 22.4 mEq/l (22.0-26.0); Methemoglobin ABG 0.4 %THb (0-1.5); Oxygen Content ABG 14.2 %vol (16.0-22.0); Oxygen Saturation ABG 95.3 % (95.0-100.0); Oxyhemoglobin 93.6 % THb (90.0-100.0); PCO2 ABG 40.4 mmHg (35.0-45.0); PO2 FiO2 Ratio Arterial Blood 1.32 %; Reduced Hemoglobin 5.7 %THb (0-5.0); Total Hemoglobin 10.7 g/dL (12.0-18.0); pH ABG 7.361 (7.350-7.450)
[2020-02-24 05:42] LABS: Device VENTILATOR; Modified Allen's Test Pass; Site Drawn RIGHT RADIAL
[2020-02-24 05:43] LABS: Arterial Blood Gas PEEP 5 cmH2O; Arterial Blood Gas Tidal Volume 300 ml; Arterial Blood Gas Vent Mode CMV; Arterial Blood Gas Ventilator rate 18 /MIN
[2020-02-24 05:50] LABS: Anion Gap 7 mmol/L (8-16); Blood Urea Nitrogen 43 mg/dL (7-17); Calcium 8.4 mg/dL (8.4-10.2); Carbon Dioxide 26 mmol/L (22-30); Chloride 100 mmol/L (98-107); Estimated CRCL calculation 29 ml/min; Estimated Glomerular Filt Rate 43; Glucose 156 mg/dL (65-105); Magnesium 2.1 mg/dL (1.6-2.3); Phosphorus 5.4 mg/dL (2.5-4.5); Potassium 4.9 mmol/L (3.4-5.0); Sodium 133 mmol/L (137-145)
[2020-02-24] MEDS: PANTOPRAZOLE SODIUM IV 40 MG VIAL IV PUSH (08:50)
[2020-02-24] MEDS: FUROSEMIDE INJ 40 MG/4 ML VIAL IV PUSH (10:40)
[2020-02-24] MEDS: METOPROLOL TARTRATE INJ 5 MG/5 ML VIAL IV PUSH (12:14)
[2020-02-24] MEDS: AMIODARONE 360 MG/D5W 200 ML 360 MG/200 ML BAG 33.3 MG IV CONT (13:25)
[2020-02-24] MEDS: AMIODARONE 150 MG/D5W 100 ML 150 MG/100 ML BAG 600 MG IV CONT (13:25)
--- NOTE | 2020-02-24 13:36 | WPDINTPN ---
Progress Note: A&P Assessment and Plan (1) Acute respiratory failure: Code(s): J96.00 - Acute respiratory failure, unspecified whether with hypoxia or hypercapnia Status: Acute Assessment and Plan: patient with acute respiratory failure likely related to pneumonia, COPD exacerbation, possible COVID-19 - patient was in impending respiratory failure, was intubated on 12/23/2019 - currently on CMV mode of ventilation, weaning FiO2 - chest x-ray and ABGs reviewed, ventilator adjusted - continue azithromycin and ceftriaxone - continue bronchodilators -on fentanyl and Versed infusions for sedation, maintain RASS of 0 to -2, daily sedation vacation (2) Suspected 2019 novel coronavirus infection: Code(s): Z20.828 - Contact with and (suspected) exposure to other viral communicable diseases Status: Acute Assessment and Plan: SARS-CoV-2 PCR NEGATIVE - DISCONTINUE droplet, airborne, contact isolation/precautions (3) CAP (community acquired pneumonia): Code(s): J18.9 - Pneumonia, unspecified organism Status: Acute Assessment and Plan: community-acquired pneumonia with acute respiratory failure - continue ceftriaxone and azithromycin - will obtain sputum cultures - blood cultures from 02/21/2020, negative x2 (4) Atrial fibrillation with RVR: Code(s): I48.91 - Unspecified atrial fibrillation Status: Acute Assessment and Plan: - echocardiogram 02/24/2020 showed normal LV systolic function with EF 60-65%. LV diastolic function is abnormal, left atrium moderately enlarged, right atrium moderately enlarged. Moderate aortic valve sclerosis, severe mitral valve regurg, severe tricuspid valve regurg, moderate pulmonary hypertension with RVSP of 56 mmHg - patient given metoprolol 5 mg IV x1 with minimal improvement - started amiodarone bolus and infusion - will obtain EKG and troponin - on consult Cardiology - started patient on therapeutic Lovenox (5) Hypertension: Code(s): I10 - Essential (primary) hypertension Status: Acute Assessment and Plan: blood pressures have been within normal limits, post intubation on positive pressure ventilation - will hold antihypertensives at this time, if blood pressures are elevated will add 1 medication at a time (6) Dietary counseling and surveillance: Code(s): Z71.3 - Dietary counseling and surveillance Status: Acute Assessment and Plan: will start tube feeds (7) DVT prophylaxis: Code(s): Z29.9 - Encounter for prophylactic measures, unspecified Status: Acute Assessment and Plan: DVT prophylaxis: therapeutic Lovenox stress ulcer prophylaxis: Protonix Additional Plan discussed with son Pablo, updated him with patient's condition and plan of care. I answered all questions. Code status: I did discuss with son regarding DNR status and confirmed that patient is a no CPR critical care time spent: 37 minutes Due to a high probability of clinically significant, life threatening deterioration, the patient required my highest level of preparedness to intervene emergently and I personally spent this critical care time directly and personally managing the patient. This critical care time included obtaining a history; examining the patient; pulse oximetry; ordering and review of studies; arranging urgent treatment with development of a management plan; evaluation of patient's response to treatment; frequent reassessment; and discussions with other providers. It was exclusive of separately billable procedures and treating other patients and teaching time. Please see Assessment and Plan section and the rest of the note for further information on patient assessment and treatment Subjective Date/time seen: 02/24/20 13:36 Interval history: Reason for consult: acute respiratory failure, pneumonia, COPD exacerbation - intubated on 02/23/2020 - COVID-19 negative
[2020-02-24] MEDS: FENTANYL 2,500MCG/NS250ML(*CRX 2,500 MCG/250 ML BAG IV CONT (13:46)
--- NOTE | 2020-02-24 13:47 | ECG_ITS ---
Measurements Intervals [place] Rate: 79 P: 47 UT: 136 QRS: 50 QRSD: 101 T: 49 QT: 408 QTc: 469 Interpretive Statements SINUS RHYTHM WITH SINUS ARRHYTHMIA POSSIBLE LEFT ATRIAL ENLARGEMENT LOW QRS VOLTAGE IN LIMB LEADS BORDERLINE ECG Electronically Signed On 02-24-2020 14:06:34 CDT by Jose Moseley D.O.
--- NOTE | 2020-02-24 15:38 | PM.CNCAR ---
Assessment and Plan Assessment and plan (1) Atrial fibrillation with RVR: Code(s): I48.91 - Unspecified atrial fibrillation Status: Acute Assessment and Plan: Very rapid ventricular response >200bpm at one point. Probable transient atrial flutter on telemetry. Controlled after receiving Amiodarone, but subsequent hypotension with bolus. Hold for now monitor for recurrence. BB for HR control as BP allows. Keep potassium and magnesium around 4 and 2 respectively. Monitor renal function closely. Anticoagulation with enoxaparin 1 milligram/kilogram subcutaneous for now. Monitor for signs of bleeding. Secondary to acute critical illness and respiratory failure although left atrial enlargement and valvular heart disease contributing as well. (2) Acute respiratory failure: Code(s): J96.00 - Acute respiratory failure, unspecified whether with hypoxia or hypercapnia Status: Acute Assessment and Plan: Per Critical Care. Continue IV antibiotics, bronchodilators. Wean ventilatory support as able. Pt remains critically ill. Prognosis poor. No CPR order noted. (3) Severe mitral regurgitation: Code(s): I34.0 - Nonrheumatic mitral (valve) insufficiency Status: Acute Assessment and Plan: Noted on echocardiogram. Further workup depending on clinical course. Patient unlikely reasonable surgical candidate, however, further clarification with SAIRA may be considered but not at this time. (4) Severe tricuspid regurgitation: Code(s): I07.1 - Rheumatic tricuspid insufficiency Status: Acute Assessment and Plan: As above, patient unlikely reasonable surgical candidate. (5) Pulmonary hypertension: Code(s): I27.20 - Pulmonary hypertension, unspecified Status: Acute (6) COPD exacerbation: Code(s): J44.1 - Chronic obstructive pulmonary disease with (acute) exacerbation Status: Acute Assessment and Plan: Moderate in severity RVSP 56 mm Hg likely secondary to underlying lung disease although given severe TR possible contribution in this regard as well. Continue supportive care. Monitor volume status but no further workup at this time. History of Present Illness History of Present Illness Consult date/time: Date of service: 02/24/20 15:38 This is a cardiology consultation at the request of Dr. Robles for our opinion regarding abnormal echocardiogram with severe mitral and tricuspid regurgitation and atrial fibrillation with RVR Requesting physician: Hema Robles MD Consult reason: atrial fibrillation and Other ( severe mitral and tricuspid regurgitation) Reason For Visit: PNEUMONIA, COPD EXACERB Narrative: Patient is a 80-year-old female with a known history of COPD, hypertension, chronic back pain was admitted 02/21/20 through the ED complaints of 3 days history of shortness of breath that was progressive. She was found to be hypoxic O2 saturation 88% on room air with CT chest consistent with pneumonia and small effusions and no pulmonary embolism. Patient placed on oxygen supplementation high-flow nasal cannula originally admitted to the floor and transferred to the IMU. She was seen by critical care and due to impending respiratory failure was then intubated and admitted to the intensive care unit. COVID negative. She remains on a ventilator and is sedated. As such, history is obtained through electronic medical record. she is being treated for community-acquired pneumonia with acute respiratory failure on ceftriaxone, azithromycin, bronchodilators. She had been hemodynamically stable, negative blood cultures thus far. However, this morning she was developing episodes of SVT, frequent PACs and this afternoon evidence of transient probable atrial flutter with RVR as well as atrial fibrillation with very rapid ventricular response over 200 beats per minute. As such, patient received IV amiodarone bolus which converted her to sinus rh
[2020-02-24] MEDS: SODIUM CHLORIDE 0.9% IV 500 ML IV CONT ×2 (15:51→15:59)
[2020-02-24] MEDS: AMIODARONE 360 MG/D5W 200 ML 360 MG/200 ML BAG 16.7 MG IV CONT (19:10)
--- NOTE | 2020-02-24 20:03 | PC.NURSE ---
ICU Patient moved from RM 2 to RM 11
[2020-02-24] MEDS: CENTRAL LINE FLUSH 10 ML IV PUSH (22:45)
[2020-02-25] VITALS (26 sets, daily range): BP systolic 89–145; BP diastolic 60–102; PULSE 61–125; RESP 14–20; TEMP 36.3–36.9; O2SAT 92–98
[2020-02-25] MEDS: LEVALBUTEROL NEB 1.25 MG/3 ML 0.63 MG INHALATION ×4 (02:52→21:04)
[2020-02-25] MEDS: IPRATROPIUM BR 0.02% INH SOLN 0.5 MG/2.5 ML VIAL INHALATION ×4 (02:52→21:04)
[2020-02-25 04:32] LABS: Carboxyhemoglobin 0.1 % THb (0-2.0); Fractional Inspired Oxygen 45 %; HCO3 ABG 22.4 mEq/l (22.0-26.0); Methemoglobin ABG 0.2 %THb (0-1.5); Oxygen Content ABG 14.1 %vol (16.0-22.0); Oxygen Saturation ABG 92.1 % (95.0-100.0); Oxyhemoglobin 89.9 % THb (90.0-100.0); PCO2 ABG 41.4 mmHg (35.0-45.0); PO2 ABG 65.8 mmHg (80.0-100.0); PO2 FiO2 Ratio Arterial Blood 1.46 %; Reduced Hemoglobin 9.8 %THb (0-5.0); Total Hemoglobin 11.1 g/dL (12.0-18.0); pH ABG 7.351 (7.350-7.450)
[2020-02-25 04:35] LABS: Arterial Blood Gas Vent Mode CMV; Arterial Blood Gas Ventilator rate 18 /MIN; Device VENTILATOR; Modified Allen's Test Pass; Site Drawn LEFT RADIAL
[2020-02-25 04:36] LABS: Arterial Blood Gas PEEP 5 cmH2O; Arterial Blood Gas Tidal Volume 300 ml
[2020-02-25 04:53] LABS: Hematocrit 29.7 % (37.0-47.0); Hemoglobin 9.8 g/dL (12.0-15.0); Mean Corpuscular Hemoglobin 33.3 pg (26-34); Mean Platelet Volume 10.6 fl (7.4-10.4); Platelet Count Result 126 k/mm3 (150-375); Red Blood Count 2.94 M/mm3 (4.2-5.4); Red Cell Distribution Width 14.8 % (11.5-14.5); White Blood Count 7.9 K/mm3 (4.5-10.0)
[2020-02-25 05:11] LABS: Anion Gap 7 mmol/L (8-16); Blood Urea Nitrogen 54 mg/dL (7-17); Calcium 7.7 mg/dL (8.4-10.2); Carbon Dioxide 26 mmol/L (22-30); Chloride 97 mmol/L (98-107); Estimated CRCL calculation 22 ml/min; Estimated Glomerular Filt Rate 31; Glucose 243 mg/dL (65-105); Magnesium 2.3 mg/dL (1.6-2.3); Phosphorus 5.3 mg/dL (2.5-4.5); Potassium 4.4 mmol/L (3.4-5.0); Sodium 130 mmol/L (137-145)
[2020-02-25] MEDS: methylPREDNISolone SOD SUCC 125 MG VIAL 60 MG IV PUSH ×4 (05:20→23:12)
[2020-02-25] MEDS: ENOXAPARIN 80 MG/0.8 ML SYRINGE 65 MG SUB-Q ×2 (05:20→19:04)
[2020-02-25] MEDS: CENTRAL LINE FLUSH 10 ML IV PUSH ×3 (05:21→20:39)
[2020-02-25] MEDS: AMIODARONE 360 MG/D5W 200 ML 360 MG/200 ML BAG 16.7 MG IV CONT ×2 (06:04→19:05)
[2020-02-25] MEDS: PANTOPRAZOLE SODIUM IV 40 MG VIAL IV PUSH (09:11)
--- NOTE | 2020-02-25 12:17 | PCDIET ---
ICU Rounding Note: Patient tolerating Vital 1.2 at 50mL/hr goal rate, per nursing. Residuals <100mL. Last recorded weight is 69.3kg which is increased from last review, despite -I/O. Bowel Motility: BM x 3 on 02/22/20. Labs Reviewed: Hgb (9.8), Hct (29.7), Glu (243), BUN (54), Cr (1.6), Na (130), PO4 (5.3), Ca (7.7) Meds Noted: Phenylephrine, Protonix, Versed, Solu Medrol, Xopenex, Atrovent, Fentanyl, Lasix, Rocephin, Zithromax Additional Notes: Recommend re-checking albumin for calcium correction, as calcium previously normal. No documented skin breakdown. Following daily in ICU rounds. Assessing/reassessing every Sunday/Sunday.
[2020-02-25] MEDS: FUROSEMIDE INJ 40 MG/4 ML VIAL 20 MG IV PUSH (13:42)
--- NOTE | 2020-02-25 15:46 | PM.PNCARD ---
Progress Note: A&P Assessment and Plan (1) Atrial fibrillation with RVR: Code(s): I48.91 - Unspecified atrial fibrillation Status: Acute Assessment and Plan: With very rapid ventricular response >200bpm at one point. Probable transient atrial flutter on telemetry. Converted to sinus rhythm. Continue amiodarone drip at 0.5 mg per minute. Keep potassium and magnesium around 4 and 2 respectively. Monitor renal function closely. Anticoagulation with enoxaparin 1 milligram/kilogram subcutaneous for now. Monitor for signs of bleeding. Secondary to acute critical illness and respiratory failure although left atrial enlargement and valvular heart disease contributing as well. (2) Acute respiratory failure: Code(s): J96.00 - Acute respiratory failure, unspecified whether with hypoxia or hypercapnia Status: Acute Assessment and Plan: Per Critical Care. Continue IV antibiotics, bronchodilators. Wean ventilatory support as able. She remains critically ill. Prognosis poor. No CPR order noted. (3) Severe mitral regurgitation: Code(s): I34.0 - Nonrheumatic mitral (valve) insufficiency Status: Acute Assessment and Plan: Noted on echocardiogram. Further workup depending on clinical course. She is unlikely a reasonable surgical candidate. Further clarification with SAIRA may be considered but not at this time. (4) Severe tricuspid regurgitation: Code(s): I07.1 - Rheumatic tricuspid insufficiency Status: Acute Assessment and Plan: As above, she is unlikely a reasonable surgical candidate (5) Pulmonary hypertension: Code(s): I27.20 - Pulmonary hypertension, unspecified Status: Acute Assessment and Plan: Moderate in severity RVSP 56 mm Hg likely secondary to underlying lung disease although given severe TR possible contribution in this regard as well. Continue supportive care. Monitor volume status but no further workup at this time. (6) COPD exacerbation: Code(s): J44.1 - Chronic obstructive pulmonary disease with (acute) exacerbation Status: Acute Assessment and Plan: Management per customer service associate Additional Plan plan discussed with Dr Neal [id number] 02/25/2020 Subjective Date/time seen: 02/25/20 15:46 Interval history: Follow-up for: Mitral regurgitation and tricuspid regurgitation, atrial fibrillation with rapid ventricular response, acute respiratory failure, pneumonia, COPD exacerbation Date of service: 02/25/2020 Subjective: Remains intubated on mechanical ventilation. Sedated with fentanyl and Versed infusions. Opens eyes and follows simple commands Review of Systems Review of Systems: ROS unobtainable: Yes unobtainable due to endotracheal tube Exam Narrative: Exam Narrative: General: Elderly white female intubated /sedated on mechanical ventilatory support. Appears well developed, no apparent distress. Head: atraumatic, normocephalic Eyes: , sclerae anicteric, conjunctivae unremarkable Ears/Nose: external inspection of ears and nose were grossly normal Mouth/Throat: endotracheal intubation Neck: supple, difficult to assess jugular venous distention, trachea midline. Cardiac: Regular rate and rhythm, somewhat distant heart sounds, normal S1/S2, soft early systolic murmur, no clicks or rubs. Lungs: Diminished breath sounds bilaterally. Faint rales, no wheezes, or rhonchi. Abdomen: Soft, nontender, nondistended, positive bowel sounds throughout. Extremities: No edema, clubbing, and or cyanosis. Extremities warm and well perfused. Skin: Warm and dry, +ecchymosis UE bilaterally, no rashes, and/or petechiae. Musculoskeletal: limited exam sedated/intubated Vascular:
--- NOTE | 2020-02-25 18:38 | WPDINTPN ---
Progress Note: A&P Assessment and Plan (1) Acute respiratory failure: Code(s): J96.00 - Acute respiratory failure, unspecified whether with hypoxia or hypercapnia Status: Acute Assessment and Plan: patient with acute respiratory failure likely related to pneumonia, COPD exacerbation, possible COVID-19 - patient was in impending respiratory failure, was intubated on 12/23/2019 - currently on CMV mode of ventilation, weaning FiO2 - chest x-ray and ABGs reviewed, ventilator adjusted - continue azithromycin and ceftriaxone - continue bronchodilators -on fentanyl and Versed infusions for sedation, maintain RASS of 0 to -2, daily sedation vacation (2) Suspected 2019 novel coronavirus infection: Code(s): Z20.828 - Contact with and (suspected) exposure to other viral communicable diseases Status: Acute Assessment and Plan: SARS-CoV-2 PCR NEGATIVE - all precautions were discontinued (3) CAP (community acquired pneumonia): Code(s): J18.9 - Pneumonia, unspecified organism Status: Acute Assessment and Plan: community-acquired pneumonia with acute respiratory failure - continue ceftriaxone and azithromycin - will obtain sputum cultures - blood cultures from 02/21/2020, negative x2 (4) Atrial fibrillation with RVR: Code(s): I48.91 - Unspecified atrial fibrillation Status: Acute Assessment and Plan: - echocardiogram 02/24/2020 showed normal LV systolic function with EF 60-65%. LV diastolic function is abnormal, left atrium moderately enlarged, right atrium moderately enlarged. Moderate aortic valve sclerosis, severe mitral valve regurg, severe tricuspid valve regurg, moderate pulmonary hypertension with RVSP of 56 mmHg - patient given metoprolol 5 mg IV x1 with minimal improvement - started amiodarone bolus and infusion - will obtain EKG and troponin - cardiology following the patient - continue therapeutic Lovenox (5) Hypertension: Code(s): I10 - Essential (primary) hypertension Status: Acute Assessment and Plan: blood pressures have been within normal limits, post intubation on positive pressure ventilation - will hold antihypertensives at this time, if blood pressures are elevated will add 1 medication at a time (6) Dietary counseling and surveillance: Code(s): Z71.3 - Dietary counseling and surveillance Status: Acute Assessment and Plan: will start tube feeds (7) DVT prophylaxis: Code(s): Z29.9 - Encounter for prophylactic measures, unspecified Status: Acute Assessment and Plan: DVT prophylaxis: therapeutic Lovenox stress ulcer prophylaxis: Protonix Additional Plan discussed with son Pablo, updated him with patient's condition and plan of care. I answered all questions. Code status: I did discuss with son regarding DNR status and confirmed that patient is a no CPR critical care time spent: 33 minutes Due to a high probability of clinically significant, life threatening deterioration, the patient required my highest level of preparedness to intervene emergently and I personally spent this critical care time directly and personally managing the patient. This critical care time included obtaining a history; examining the patient; pulse oximetry; ordering and review of studies; arranging urgent treatment with development of a management plan; evaluation of patient's response to treatment; frequent reassessment; and discussions with other providers. It was exclusive of separately billable procedures and treating other patients and teaching time. Please see Assessment and Plan section and the rest of the note for further information on patient assessment and treatment Subjective Date/time seen: 02/25/20 18:38 Interval history: Reason for consult: acute respiratory failure, pneumonia, COPD exacerbation - intubated on 02/23/2020 - COVID-19 negative 02/25/2020: Patient see
[2020-02-25] MEDS: ALPRAZolam (*CRX) 0.25 MG TABLET PO (20:39)
--- NOTE | 2020-02-25 22:41 | ECG_ITS ---
Measurements Intervals [place] Rate: 127 P: GA: 0 QRS: 5 QRSD: 110 T: 30 QT: 345 QTc: 502 Interpretive Statements ATRIAL FIBRILLATION WITH RAPID VENTRICULAR RESPONSE INTRAVENTRICULAR CONDUCTION DELAY NONSPECIFIC ST & T-WAVE ABNORMALITY- INF/LAT LEADS ABNORMAL ECG Electronically Signed On 02-26-2020 7:11:44 CDT by Jose Moseley D.O.
[2020-02-25] MEDS: AMIODARONE 150 MG/D5W 100 ML 150 MG/100 ML BAG 600 MG IV CONT (23:11)
[2020-02-25] MEDS: AMIODARONE 360 MG/D5W 200 ML 360 MG/200 ML BAG 33.3 MG IV CONT (23:11)
[2020-02-26] VITALS (28 sets, daily range): BP systolic 107–149; BP diastolic 70–91; PULSE 72–110; RESP 14–20; TEMP 36.7–37.2; O2SAT 93–100
[2020-02-26 01:25] LABS: Glucose Point of Care 190 (65-105)
[2020-02-26] MEDS: IPRATROPIUM BR 0.02% INH SOLN 0.5 MG/2.5 ML VIAL INHALATION ×4 (02:43→19:26)
[2020-02-26] MEDS: LEVALBUTEROL NEB 1.25 MG/3 ML 0.63 MG INHALATION ×4 (02:43→19:26)
[2020-02-26] MEDS: ENOXAPARIN 80 MG/0.8 ML SYRINGE 65 MG SUB-Q ×2 (03:22→14:25)
[2020-02-26] MEDS: AMIODARONE 360 MG/D5W 200 ML 360 MG/200 ML BAG 16.7 MG IV CONT ×2 (05:08→13:50)
[2020-02-26 05:14] LABS: Alveolar/Arterial O2 Gradient 227.5 mmHg; Carboxyhemoglobin 0.3 % THb (0-2.0); Fractional Inspired Oxygen 50 %; HCO3 ABG 24.2 mEq/l (22.0-26.0); Methemoglobin ABG 0.3 %THb (0-1.5); Oxygen Content ABG 15.9 %vol (16.0-22.0); Oxygen Saturation ABG 95.8 % (95.0-100.0); PCO2 ABG 42.3 mmHg (35.0-45.0); PO2 ABG 81.4 mmHg (80.0-100.0); PO2 FiO2 Ratio Arterial Blood 1.63 %; Reduced Hemoglobin 5.4 %THb (0-5.0); pH ABG 7.376 (7.350-7.450)
[2020-02-26 05:16] LABS: Device VENTILATOR; Modified Allen's Test Pass; Site Drawn RIGHT RADIAL
[2020-02-26 05:17] LABS: Arterial Blood Gas PEEP 5 cmH2O; Arterial Blood Gas Tidal Volume 300 ml; Arterial Blood Gas Vent Mode CMV; Arterial Blood Gas Ventilator rate 18 /MIN
[2020-02-26] MEDS: CENTRAL LINE FLUSH 10 ML IV PUSH ×3 (05:26→20:21)
[2020-02-26] MEDS: methylPREDNISolone SOD SUCC 125 MG VIAL 60 MG IV PUSH ×3 (05:26→18:10)
[2020-02-26 05:47] LABS: Hematocrit 31.2 % (37.0-47.0); Hemoglobin 10.5 g/dL (12.0-15.0); Mean Corpuscular HGB Conc 33.7 g/dl (32-36); Mean Corpuscular Hemoglobin 33.3 pg (26-34); Mean Platelet Volume 10.9 fl (7.4-10.4); Platelet Count Result 161 k/mm3 (150-375); Red Blood Count 3.15 M/mm3 (4.2-5.4); Red Cell Distribution Width 14.6 % (11.5-14.5); White Blood Count 16.1 K/mm3 (4.5-10.0)
[2020-02-26 05:56] LABS: Anion Gap 8 mmol/L (8-16); Blood Urea Nitrogen 61 mg/dL (7-17); Calcium 7.7 mg/dL (8.4-10.2); Carbon Dioxide 30 mmol/L (22-30); Chloride 96 mmol/L (98-107); Estimated CRCL calculation 29 ml/min; Estimated Glomerular Filt Rate 43; Glucose 185 mg/dL (65-105); Magnesium 2.4 mg/dL (1.6-2.3); Potassium 3.2 mmol/L (3.4-5.0); Sodium 134 mmol/L (137-145)
[2020-02-26] MEDS: FENTANYL 2,500MCG/NS250ML(*CRX 2,500 MCG/250 ML BAG IV CONT (06:04)
[2020-02-26] MEDS: POTASSIUM CHLORIDE 20 MEQ PACKET (FOR LIQUID) 40 MEQ FEED TUBE (08:34)
[2020-02-26] MEDS: FUROSEMIDE INJ 40 MG/4 ML VIAL IV PUSH (08:34)
[2020-02-26] MEDS: PANTOPRAZOLE SODIUM IV 40 MG VIAL IV PUSH (08:35)
--- NOTE | 2020-02-26 12:48 | PCDIET ---
ICU Rounding Note: Patient tolerating Vital 1.2; however, MD ordered change to more concentrated formula of Vital 1.5 which is very appropriate. Recommend Vital 1.5 at 30mL/hr with Pro-Stat flush twice daily for total of 1190kcal, 74g protein and 504mL free water (given tube feeding infusion over 22 hours/day). Last recorded weight is 69.3kg which is stable. Bowel Motility: BM x 2 today - MD considering addition of fiber. Labs Reviewed: Hgb (10.5), Hct (31.2), Glu (185), BUN (61), Cr (1.2), K (3.2), Na (134) Meds Noted: Rocephin, Xopenex, Phenylephrine, KCl, Lasix, Fentanyl, Atrovent, Solu Medrol, Versed, Protonix Additional Notes: No documented skin breakdown. Following daily in ICU rounds. Assessing/reassessing every Sunday/Sunday.
[2020-02-26 14:00] LABS: Glucose Point of Care 180 (65-105)
--- NOTE | 2020-02-26 14:05 | WPDINTPN ---
Progress Note: A&P Assessment and Plan (1) Acute respiratory failure: Code(s): J96.00 - Acute respiratory failure, unspecified whether with hypoxia or hypercapnia Status: Acute Assessment and Plan: patient with acute respiratory failure likely related to pneumonia, COPD exacerbation, possible COVID-19 - patient was in impending respiratory failure, was intubated on 12/23/2019 - currently on CMV mode of ventilation, weaning FiO2 - chest x-ray shows progression of pneumonia and/or edema and likely increase in pleural effusions - ABGs reviewed, ventilator adjusted - will switch azithromycin and ceftriaxone to cefepime and vancomycin, given increased leukocytosis and worsening chest x-ray - continue bronchodilators - fentanyl and Versed infusions for sedation, maintain RASS of 0 to -2, daily sedation vacation (2) Suspected 2019 novel coronavirus infection: Code(s): Z20.828 - Contact with and (suspected) exposure to other viral communicable diseases Status: Acute Assessment and Plan: SARS-CoV-2 PCR NEGATIVE - all precautions were discontinued (3) CAP (community acquired pneumonia): Code(s): J18.9 - Pneumonia, unspecified organism Status: Acute Assessment and Plan: community-acquired pneumonia with acute respiratory failure, pulmonary edema, pleural effusion. Could be related to systolic dysfunction severe mitral and tricuspid regurg. - continue antibiotics as above - will obtain sputum cultures - blood cultures from 02/21/2020, negative x2 (4) Atrial fibrillation with RVR: Code(s): I48.91 - Unspecified atrial fibrillation Status: Acute Assessment and Plan: - echocardiogram 02/24/2020 showed normal LV systolic function with EF 60-65%. LV diastolic function is abnormal, left atrium moderately enlarged, right atrium moderately enlarged. Moderate aortic valve sclerosis, severe mitral valve regurg, severe tricuspid valve regurg, moderate pulmonary hypertension with RVSP of 56 mmHg - patient given metoprolol 5 mg IV x1 with minimal improvement - Continue amiodarone - cardiology following the patient - continue therapeutic Lovenox (5) Hypertension: Code(s): I10 - Essential (primary) hypertension Status: Acute Assessment and Plan: blood pressures have been within normal limits, post intubation on positive pressure ventilation - will hold antihypertensives at this time, if blood pressures are elevated will add 1 medication at a time (6) Dietary counseling and surveillance: Code(s): Z71.3 - Dietary counseling and surveillance Status: Acute Assessment and Plan: patient tolerating tube feeds, positive bowel movement (7) DVT prophylaxis: Code(s): Z29.9 - Encounter for prophylactic measures, unspecified Status: Acute Assessment and Plan: DVT prophylaxis: therapeutic Lovenox stress ulcer prophylaxis: Protonix Additional Plan discussed with son Pbalo, updated him with patient's condition and plan of care. I answered all questions. Code status: I did discuss with son regarding DNR status and confirmed that patient is a no CPR critical care time spent: 34 minutes Due to a high probability of clinically significant, life threatening deterioration, the patient required my highest level of preparedness to intervene emergently and I personally spent this critical care time directly and personally managing the patient. This critical care time included obtaining a history; examining the patient; pulse oximetry; ordering and review of studies; arranging urgent treatment with development of a management plan; evaluation of patient's response to treatment; frequent reassessment; and discussions with other providers. It was exclusive of separately billable procedures and treating other patients and teaching time. Please see Assessment and Plan section and the rest of the note for further informat
[2020-02-26 18:37] LABS: Glucose Point of Care 176 (65-105)
[2020-02-26] MEDS: ALPRAZolam (*CRX) 0.25 MG TABLET PO (20:21)
[2020-02-26] MEDS: CEFEPIME 0.5 GM in DEXTROSE 5% IN WATER 50 ML IVPB (21:34)
[2020-02-27] VITALS (45 sets, daily range): BP systolic 90–146; BP diastolic 53–91; PULSE 73–166; RESP 10–22; TEMP 36.3–37.7; O2SAT 94–100
[2020-02-27] MEDS: AMIODARONE 360 MG/D5W 200 ML 360 MG/200 ML BAG 16.7 MG IV CONT ×2 (00:25→11:59)
[2020-02-27] MEDS: methylPREDNISolone SOD SUCC 125 MG VIAL 60 MG IV PUSH ×5 (00:26→23:57)
[2020-02-27 00:30] LABS: Glucose Point of Care 164 (65-105)
[2020-02-27] MEDS: ENOXAPARIN 80 MG/0.8 ML SYRINGE 65 MG SUB-Q ×2 (02:35→14:46)
[2020-02-27] MEDS: LEVALBUTEROL NEB 1.25 MG/3 ML 0.63 MG INHALATION ×4 (02:59→19:33)
[2020-02-27] MEDS: IPRATROPIUM BR 0.02% INH SOLN 0.5 MG/2.5 ML VIAL INHALATION ×4 (03:00→19:32)
[2020-02-27 04:56] LABS: Alveolar/Arterial O2 Gradient 151.8 mmHg; Base Excess ABG 3.4 mEq/l (+/-2.0); Carboxyhemoglobin 0.3 % THb (0-2.0); Fractional Inspired Oxygen 40 %; HCO3 ABG 28.3 mEq/l (22.0-26.0); Methemoglobin ABG 0.3 %THb (0-1.5); Oxygen Content ABG 15.6 %vol (16.0-22.0); Oxygen Saturation ABG 96.3 % (95.0-100.0); PCO2 ABG 44.1 mmHg (35.0-45.0); PO2 ABG 82.7 mmHg (80.0-100.0); PO2 FiO2 Ratio Arterial Blood 2.07 %; Reduced Hemoglobin 4.4 %THb (0-5.0); Total Hemoglobin 11.6 g/dL (12.0-18.0); pH ABG 7.425 (7.350-7.450)
[2020-02-27 05:01] LABS: Device VENTILATOR; Modified Allen's Test Pass; Site Drawn RIGHT RADIAL
[2020-02-27 05:02] LABS: Arterial Blood Gas PEEP 5 cmH2O; Arterial Blood Gas Tidal Volume 300 ml; Arterial Blood Gas Vent Mode CMV; Arterial Blood Gas Ventilator rate 18 /MIN
[2020-02-27 05:45] LABS: Hemoglobin 10.5 g/dL (12.0-15.0); Mean Corpuscular HGB Conc 33.9 g/dl (32-36); Mean Corpuscular Hemoglobin 33.4 pg (26-34); Mean Corpuscular Volume 98.7 fl (80-100); Mean Platelet Volume 11.1 fl (7.4-10.4); Platelet Count Result 158 k/mm3 (150-375); Red Blood Count 3.14 M/mm3 (4.2-5.4); Red Cell Distribution Width 14.9 % (11.5-14.5); White Blood Count 13.6 K/mm3 (4.5-10.0)
[2020-02-27] MEDS: METOPROLOL TARTRATE INJ 5 MG/5 ML VIAL IV PUSH ×2 (05:58→11:05)
[2020-02-27 05:59] LABS: Anion Gap 10 mmol/L (8-16); Blood Urea Nitrogen 58 mg/dL (7-17); Calcium 7.5 mg/dL (8.4-10.2); Carbon Dioxide 30 mmol/L (22-30); Chloride 94 mmol/L (98-107); Estimated CRCL calculation 32 ml/min; Estimated Glomerular Filt Rate 48; Glucose 283 mg/dL (65-105); Magnesium 2.5 mg/dL (1.6-2.3); Phosphorus 3.1 mg/dL (2.5-4.5); Potassium 4.3 mmol/L (3.4-5.0); Sodium 134 mmol/L (137-145)
[2020-02-27] MEDS: CENTRAL LINE FLUSH 10 ML IV PUSH ×3 (06:02→21:13)
--- NOTE | 2020-02-27 09:16 | PM.PNCARD ---
Progress Note: A&P Additional Plan 80 yo WF with PAF maintaining sinus rhythm with IV Amiodarone at present. Likely triggered by COPD and her MR/TR. 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 DNR status is appropriate . Rex Rapp MD [facility] Subjective Date/time seen: Date of service: 02/27/20 09:16 Interval history: Follow-up for: Mitral regurgitation and tricuspid regurgitation, atrial fibrillation with rapid ventricular response, valvular disease , acute respiratory failure, pneumonia, COPD exacerbation Date of service: 02/27/20 Subjective: Still intubated , appears comfortable Exam Const: General: comfortable Other: Frail elderly WF on the vent HENMT: Mouth: Yes dry mucous membranes Eyes: Sclera: sclerae normal Neck: Neck: supple Thyroid: thyroid normal Other: Carotid pulses are intact Resp: Other: Decreased BS bilaterally Cardio: Rate: tachycardic Rhythm: regular rhythm Other: 2/6 holosystolic MR murmur GI: Auscultation: normal bowel sounds Skin: General skin exam: normal color Neuro: Other: Sedated Extrem: General: normal to inspection Objective Data Vital Signs Vital Signs: Vital Signs - 24 hr 02/26/20 10:00 02/26/20 12:00 02/26/20 12:40 Temperature 36.7 C Pulse Rate 72 79 86 Respiratory Rate 20 Blood Pressure 123/80 107/71 Pulse Oximetry 100 100 95 02/26/20 14:00 02/26/20 14:41 02/26/20 14:46 Temperature Pulse Rate 75 110 H 110 H Respiratory Rate 20 19 Blood Pressure 108/70 Pulse Oximetry 98 99 02/26/20 16:00 02/26/20 16:49 02/26/20 17:56 Temperature 37.1 C Pulse Rate 102 H 101 H 95 Respiratory Rate 19 18 Blood Pressure 136/75 Pulse Oximetry 99 99 99 02/26/20 18:00 02/26/20 19:20 02/26/20 19:26 Temperature Pulse Rate 100 90 91 Respiratory Rate 18 19 Blood Pressure 136/76 Pulse Oximetry 97 100 02/26/20 19:30 02/26/20 20:00 02/26/20 22:00 Temperature 37.2 C Pulse Rate 90 88 92 Respiratory Rate 19 18 18 Blood Pressure 135/75 135/78 Pulse Oximetry 97 93 02/26/20 23:23 02/27/20 00:00 02/27/20 00:25 Temperature 37.0 C Pulse Rate 91 79 81 Respiratory Rate 18 Blood Pressure 115/77 123/71 Pulse Oximetry 100 100 02/27/20 02:00 02/27/20 02:25 02/27/20 02:50 Temperature Pulse Rate 80 97 97 Respiratory Rate 16 21 H Blood Pressure 127/54 L Pulse Oximetry 100 99 02/27/20 04:00 02/27/20 05:02 02/27/20 05:58 Temperature 37.2 C Pulse Rate 80 149 H 152 H Respiratory Rate 18 Blood Pressure 146/70 H Pulse Oximetry 96 96 02/27/20 06:00 02/27/20 06:06 Temperature Pulse Rate 93 93 Respiratory Rate 20 18 Blood Pressure 136/78 Pulse Oximetry 97 Intake/Output Intake/Output: Intake & Output 02/24/20 02/25/20 02/26/20 02/27/20 23:59 23:59 23:59 23:59 Intake Total 889 1646 1966 1045 Output Total 1175 1900 2350 650 Zgghyqw -286 -691 -334 395 Meds/Results Medications: Active Medications Generic Name Dose Route Start Last Admin Trade Name Freq PRN Reason Stop Dose Admin Acetaminophen 650 mg 02/22/20 10:54 Tylenol Tablet PO Q4H PRN mild pain, fever Alprazolam 0.25 mg 02/22/20 20:00 02/26/20 20:21 Xanax PO 0.25 mg HS SUNITA Administration Amlodipine Besylate 5 mg 02/23/20 09:00 02/23/20 13:45 Norvasc PO Not Given DAILY SUNITA Dextrose 12.5 gm 02/27/20 08:11 Dextrose 50% Syringe IV PUSH PRN PRN Hypoglycemia Protocol Enoxaparin Sodium 65 mg 02/24/20 15:00 02/27/20 02:35 Lovenox SUB-Q 65 mg Q12H SUNITA Administration Glucagon 1 mg 02/27/20 08:11 Glucagon For Inj IM PRN PRN Hypoglycemia Protocol Glucose 15 gm 02/27/20 08:11 Glutose 15 PO PRN PRN Hypoglycemia Protocol Midazolam HCl 50 mg in 100 mls @ 4 mls/hr 02/23/20 09:50 02/27/20 06:06 Versed 50 Mg/D5w 100 Ml IV CONT 2 mg/hr .Q25H SUNITA 4 mls/h
[2020-02-27] MEDS: FUROSEMIDE INJ 40 MG/4 ML VIAL IV PUSH (10:50)
--- NOTE | 2020-02-27 10:53 | PCDIET ---
Nutrition Follow-Up Complete: Nutrition Diagnosis: Inadequate oral intake related to oral intubation as evidenced by NPO status. Nutrition Goal: Patient to meet estimated nutritional needs. Goal met. Patient tolerating Vital 1.5 at 30mL/hr with Pro-Stat BID. Plan to hold tube feedings and turn down sedation for possible breathing trial. Tube feeds to resume if unable to extubate. Recommend checking albumin for calcium correction and replacing calcium, if appropriate. Last recorded weight is 69.3 kg which is stable. Bowel Motility: BM x 2 on 02/26/20. Labs Reviewed: Hgb (10.5), Hct (31.0), Glu (283), BUN (58), Cr (1.1), Na (134), Ca (7.5) Meds Noted: Cefepime, Xopenex, Solu Medrol, Versed, Fentanyl, Novolog, Protonix, Phenylephrine, Atrovent, Vancomycin Additional Notes: No documented skin breakdown. Will continue to monitor with same goal. Nutrition Monitoring and Evaluation: Follow up every Sunday/Sunday. Follow daily in ICU rounds.
[2020-02-27] MEDS: METOPROLOL TARTRATE 12.5 MG TABLET PO (10:58)
[2020-02-27] MEDS: CEFEPIME 0.5 GM in DEXTROSE 5% IN WATER 50 ML IVPB ×2 (10:59→21:05)
[2020-02-27] MEDS: PANTOPRAZOLE SODIUM IV 40 MG VIAL IV PUSH (11:00)
[2020-02-27 11:14] LABS: Glucose Point of Care 231 (65-105)
[2020-02-27] MEDS: INSULIN ASPART (*BKC) 100 UNITS/ML SUB-Q ×2 (11:14→23:57)
[2020-02-27 12:35] LABS: Glucose Point of Care 221 (65-105)
[2020-02-27] MEDS: AMIODARONE 150 MG/D5W 100 ML 150 MG/100 ML BAG 600 MG IV CONT (12:55)
--- NOTE | 2020-02-27 13:51 | WPDINTPN ---
Progress Note: A&P Assessment and Plan (1) Atrial fibrillation with RVR: Code(s): I48.91 - Unspecified atrial fibrillation Status: Acute Assessment and Plan: - echocardiogram 02/24/2020 showed normal LV systolic function with EF 60-65%. LV diastolic function is abnormal, left atrium moderately enlarged, right atrium moderately enlarged. Moderate aortic valve sclerosis, severe mitral valve regurg, severe tricuspid valve regurg, moderate pulmonary hypertension with RVSP of 56 mmHg - patient given metoprolol 5 mg IV x1 with minimal improvement - patient with AFib RVR, requiring multiple doses of amiodarone bolus, remains on amiodarone infusion at 1 mg/min - cardiology following the patient - continue therapeutic Lovenox (2) Acute respiratory failure: Code(s): J96.00 - Acute respiratory failure, unspecified whether with hypoxia or hypercapnia Status: Acute Assessment and Plan: patient with acute respiratory failure likely related to pneumonia, COPD exacerbation, volume overload. Could be related to systolic dysfunction severe mitral and tricuspid regurg. - patient was in impending respiratory failure, was intubated on 12/23/2019 - currently on CMV mode of ventilation, weaning FiO2 - chest x-ray shows progression of pneumonia and/or edema and likely increase in pleural effusions - ABGs reviewed, ventilator adjusted - continue cefepime and vancomycin ( started on 02/26/2020), - continue bronchodilators - discontinue fentanyl and Versed infusion and start Precedex (3) CAP (community acquired pneumonia): Code(s): J18.9 - Pneumonia, unspecified organism Status: Acute Assessment and Plan: community-acquired pneumonia with acute respiratory failure, pulmonary edema, pleural effusion. . - continue antibiotics as above - sputum cultures are negative - blood cultures from 02/21/2020, negative x2 (4) Suspected 2019 novel coronavirus infection: Code(s): Z20.828 - Contact with and (suspected) exposure to other viral communicable diseases Status: Acute Assessment and Plan: SARS-CoV-2 PCR NEGATIVE - all precautions were discontinued (5) Hypertension: Code(s): I10 - Essential (primary) hypertension Status: Acute Assessment and Plan: continue amlodipine, metoprolol - will increase metoprolol to 25 mg p.o. q.12 hours (6) Dietary counseling and surveillance: Code(s): Z71.3 - Dietary counseling and surveillance Status: Acute Assessment and Plan: patient tolerating tube feeds, positive bowel movement (7) DVT prophylaxis: Code(s): Z29.9 - Encounter for prophylactic measures, unspecified Status: Acute Assessment and Plan: DVT prophylaxis: therapeutic Lovenox stress ulcer prophylaxis: Protonix Additional Plan discussed with son Pablo, updated him with patient's condition and plan of care. I answered all questions. Code status: no CPR critical care time spent: 33 minutes Due to a high probability of clinically significant, life threatening deterioration, the patient required my highest level of preparedness to intervene emergently and I personally spent this critical care time directly and personally managing the patient. This critical care time included obtaining a history; examining the patient; pulse oximetry; ordering and review of studies; arranging urgent treatment with development of a management plan; evaluation of patient's response to treatment; frequent reassessment; and discussions with other providers. It was exclusive of separately billable procedures and treating other patients and teaching time. Please see Assessment and Plan section and the rest of the note for further information on patient assessment and treatment Subjective Date/time seen: 02/27/20 13:51 Interval history: Reason for consult: acute respiratory failure, pneumonia, COPD exacerbation - intu
[2020-02-27] MEDS: ACETAMINOPHEN 325 MG TABLET 650 MG PO (14:45)
[2020-02-27 17:49] LABS: Glucose Point of Care 188 (65-105)
[2020-02-27] MEDS: AMIODARONE 360 MG/D5W 200 ML 360 MG/200 ML BAG 33.3 MG IV CONT (18:27)
--- NOTE | 2020-02-27 18:30 | PM.IMPN ---
Progress Note: A&P Assessment and Plan (1) COPD exacerbation: Code(s): J44.1 - Chronic obstructive pulmonary disease with (acute) exacerbation Status: Acute Assessment and Plan: The patient has been admitted for COPD exacerbation vs. pneumonia. Continue bronchodilators, oxygen supplementation, steroid therapy. The patient was treated with antibiotics in the ER [facility]. 02/27/20 18:30 patient is 80-year-old female with history of COPD presented emergency department with a complaint of cough shortness of patient was hypoxic on room air and patient was placed on oxygen and treated for exacerbation of COPD, she was tested for COVID and negative, initially patient was admitted to IMU then became hypoxic and was emergently intubated and transferred to ICU, patient developed new onset atrial fibrillation is being treated with IV amiodarone, rate is controlled and anticoagulated with Lovenox, patient is severe mitral and tricuspid valve regurgitation on echogram with normal ejection fraction of 60%, patient is not a candidate for surgical intervention of her valvular disease, currently patient on vent, and prognosis is poor, patient is seen by boiling off winder and golf ball cover treater and further recommendation to follow (2) Suspected 2019 novel coronavirus infection: Code(s): Z20.828 - Contact with and (suspected) exposure to other viral communicable diseases Status: Acute Assessment and Plan: Continue droplet isolation. Covid-19 results pending. Continue supportive care. (3) Lumbosacral spondylosis with radiculopathy: Code(s): M47.27 - Other spondylosis with radiculopathy, lumbosacral region Status: Chronic Assessment and Plan: Continue pain control as needed. Subjective Date/time seen: 02/27/20 18:30 patient is 80-year-old female with history of COPD presented emergency department with a complaint of cough shortness of patient was hypoxic on room air and patient was placed on oxygen and treated for exacerbation of COPD, she was tested for COVID and negative, initially patient was admitted to IMU then became hypoxic and was emergently intubated and transferred to ICU, patient developed new onset atrial fibrillation is being treated with IV amiodarone, rate is controlled and anticoagulated with Lovenox, patient is severe mitral and tricuspid valve regurgitation on echogram with normal ejection fraction of 60%, patient is not a candidate for surgical intervention of her valvular disease, currently patient on vent, and prognosis is poor, patient is seen by boiling off winder and golf ball cover treater and further recommendation to follow Review of Systems Review of Systems: ROS unobtainable: Yes unobtainable due to endotracheal tube Exam Const: General: comfortable and no acute distress HENMT: General nose exam: Normal nares present Other: ET tube in place Eyes: Sclera: sclerae normal Neck: Other: no retraction Resp: Other: bilateral fair air entry with harsh breath sound Cardio: Rate: regular rate Rhythm: regular rhythm GI: Auscultation: normal bowel sounds Skin: General skin exam: normal color Neuro: Other: on vent and sedated Extrem: General: normal to inspection Psych: Other: on vent and sedated Objective Data Vital Signs Vital Signs: Vital Signs - 24 hr 02/26/20 19:20 02/26/20 19:26 02/26/20 19:30 Temperature Pulse Rate 90 91 90 Respiratory Rate 19 19 Blood Pressure Pulse Oximetry 100 02/26/20 20:00 02/26/20 22:00 02/26/20 23:23 Temperature 99 F Pulse Rate 88 92 91 Respiratory Rate 18 18 Blood Pressure 135/75 135/78 Pulse Oximetry 97 93 100 02/27/20 00:00 02/27/20 00:25 02/27/20 02:00 Temperature 98.6 F Pulse Rate 79 81 80 Respiratory Rate 18 16 Blood Pressure 115/77 123/71 127/54 L Pulse Oximetry 100 100 02/27/20 02:25 02/27/20 02:50 02/27/20 04:00 Temperature 98.9 F Pulse Rate 97 97 80 Respiratory Rate 21 H 18 Blood Pressure
[2020-02-27] MEDS: METOPROLOL TARTRATE 25 MG TABLET PO (21:12)
--- NOTE | 2020-02-27 23:37 | PC.NURSE ---
[id number] Patient still not opening eyes or following commands. CT head noted from today. Precedex placed on hold. Vero harrell RN made aware. Was told in report that patient was not following commands or opening eyes.
[2020-02-27 23:54] LABS: Glucose Point of Care 242 (65-105)
[2020-02-28] VITALS (40 sets, daily range): BP systolic 106–158; BP diastolic 60–82; PULSE 70–124; RESP 14–30; TEMP 36.2–37.6; O2SAT 88–97
[2020-02-28] MEDS: AMIODARONE 360 MG/D5W 200 ML 360 MG/200 ML BAG 33.3 MG IV CONT ×4 (00:29→18:28)
--- NOTE | 2020-02-28 00:39 | PC.NURSE ---
0030 02/28/20 Opening eyes to voice, yawning. Still not squeezing hands. More alert. Precedex resumed at 0.2 mcg/kg/hr.
[2020-02-28] MEDS: LEVALBUTEROL NEB 1.25 MG/3 ML 0.63 MG INHALATION ×4 (01:52→20:29)
[2020-02-28] MEDS: IPRATROPIUM BR 0.02% INH SOLN 0.5 MG/2.5 ML VIAL INHALATION ×4 (01:52→20:29)
[2020-02-28] MEDS: ENOXAPARIN 80 MG/0.8 ML SYRINGE 65 MG SUB-Q ×2 (02:33→14:29)
[2020-02-28 04:50] LABS: Hematocrit 28.5 % (37.0-47.0); Hemoglobin 9.6 g/dL (12.0-15.0); Mean Corpuscular HGB Conc 33.7 g/dl (32-36); Mean Corpuscular Hemoglobin 32.8 pg (26-34); Mean Corpuscular Volume 97.3 fl (80-100); Mean Platelet Volume 10.6 fl (7.4-10.4); Platelet Count Result 135 k/mm3 (150-375); Red Blood Count 2.93 M/mm3 (4.2-5.4); Red Cell Distribution Width 14.8 % (11.5-14.5); White Blood Count 10.4 K/mm3 (4.5-10.0)
[2020-02-28 05:09] LABS: Anion Gap 6 mmol/L (8-16); Blood Urea Nitrogen 58 mg/dL (7-17); Calcium 7.7 mg/dL (8.4-10.2); Carbon Dioxide 36 mmol/L (22-30); Chloride 91 mmol/L (98-107); Estimated CRCL calculation 35 ml/min; Estimated Glomerular Filt Rate 53; Glucose 193 mg/dL (65-105); Magnesium 2.7 mg/dL (1.6-2.3); Phosphorus 2.4 mg/dL (2.5-4.5); Potassium 3.5 mmol/L (3.4-5.0); Sodium 133 mmol/L (137-145)
[2020-02-28 05:39] LABS: Glucose Point of Care 214 (65-105)
[2020-02-28] MEDS: methylPREDNISolone SOD SUCC 125 MG VIAL 60 MG IV PUSH ×4 (05:42→23:33)
[2020-02-28] MEDS: INSULIN ASPART (*BKC) 100 UNITS/ML SUB-Q (05:42)
[2020-02-28] MEDS: CENTRAL LINE FLUSH 10 ML IV PUSH ×3 (05:42→21:29)
[2020-02-28 05:53] LABS: Alveolar/Arterial O2 Gradient 133.8 mmHg; Base Excess ABG 6.1 mEq/l (+/-2.0); Carboxyhemoglobin 0.3 % THb (0-2.0); Device VENTILATOR; Fractional Inspired Oxygen 35 %; HCO3 ABG 30.1 mEq/l (22.0-26.0); Methemoglobin ABG 0.2 %THb (0-1.5); Modified Allen's Test Unable to perform; Oxygen Content ABG 13.9 %vol (16.0-22.0); Oxygen Saturation ABG 94.7 % (95.0-100.0); Oxyhemoglobin 92.6 % THb (90.0-100.0); PCO2 ABG 41.2 mmHg (35.0-45.0); PO2 ABG 67.9 mmHg (80.0-100.0); PO2 FiO2 Ratio Arterial Blood 1.94 %; Reduced Hemoglobin 6.9 %THb (0-5.0); Site Drawn RIGHT RADIAL; Total Hemoglobin 10.6 g/dL (12.0-18.0); pH ABG 7.482 (7.350-7.450)
[2020-02-28 05:54] LABS: Arterial Blood Gas PEEP 5 cmH2O; Arterial Blood Gas Tidal Volume 300 ml; Arterial Blood Gas Vent Mode CMV; Arterial Blood Gas Ventilator rate 18 /MIN
[2020-02-28] MEDS: FUROSEMIDE INJ 40 MG/4 ML VIAL IV PUSH (09:12)
[2020-02-28] MEDS: POTASSIUM PHOS,M-BASIC-D-BASIC 20 MMOL in SODIUM CHLORIDE 0.9% IV 250 ML 62.5 MMOL IVPB (09:12)
[2020-02-28] MEDS: PANTOPRAZOLE SODIUM IV 40 MG VIAL IV PUSH (09:12)
[2020-02-28] MEDS: METOPROLOL TARTRATE 25 MG TABLET PO ×2 (09:13→20:54)
[2020-02-28] MEDS: CEFEPIME 0.5 GM in DEXTROSE 5% IN WATER 50 ML IVPB ×2 (09:16→20:54)
--- NOTE | 2020-02-28 09:46 | PM.PNCARD ---
Progress Note: A&P Additional Plan 80 juvencio WF with PAF due to MR/TR and COPD . Not a candidate for MVR >> will likely have recurrences of AF Poor log-term prognosis Will transition to PO Amiodarone if and when extubated DNR status is appropriate Dionte Subjective Date/time seen: Date of service: 02/28/20 09:46 Interval history: Follow-up for: Mitral regurgitation and tricuspid regurgitation, atrial fibrillation with rapid ventricular response, valvular disease , acute respiratory failure, pneumonia, COPD exacerbation Date of service: 02/28/20 Subjective: Still intubated , appears comfortable Exam Const: Other: Elderly WF intubated / sedated Eyes: Sclera: sclerae normal Neck: Neck: supple and no JVD Resp: Auscultation: clear to auscultation bilaterally Cardio: Rate: regular rate Rhythm: regular rhythm Other: Maintaining NSR this AM GI: Auscultation: normal bowel sounds Extrem: Other: No edema Objective Data Vital Signs Vital Signs: Vital Signs - 24 hr 02/27/20 10:00 02/27/20 10:58 02/27/20 11:05 Temperature Pulse Rate 98 166 H 155 H Respiratory Rate 13 Blood Pressure 142/68 H Pulse Oximetry 98 02/27/20 11:41 02/27/20 11:59 02/27/20 12:00 Temperature 37.3 C Pulse Rate 152 H 133 H 139 H Respiratory Rate 13 Blood Pressure 126/91 H 126/91 H Pulse Oximetry 96 96 02/27/20 12:25 02/27/20 12:40 02/27/20 12:55 Temperature Pulse Rate 131 H 139 H Respiratory Rate Blood Pressure 131/87 131/87 Pulse Oximetry 97 02/27/20 13:00 02/27/20 13:53 02/27/20 14:00 Temperature 37.7 C H Pulse Rate 145 H 129 H 139 H Respiratory Rate 12 12 Blood Pressure 129/86 Pulse Oximetry 94 02/27/20 14:10 02/27/20 14:45 02/27/20 14:53 Temperature 37.7 C H Pulse Rate 128 H 152 H Respiratory Rate 12 18 Blood Pressure Pulse Oximetry 02/27/20 14:54 02/27/20 16:00 02/27/20 16:32 Temperature 37.0 C 37.0 C Pulse Rate 152 H 102 H Respiratory Rate 18 18 Blood Pressure 117/65 Pulse Oximetry 94 02/27/20 16:55 02/27/20 16:56 02/27/20 17:23 Temperature Pulse Rate 113 H 117 H 121 H Respiratory Rate 18 Blood Pressure 117/65 Pulse Oximetry 94 02/27/20 17:46 02/27/20 17:47 02/27/20 18:27 Temperature Pulse Rate 114 H 104 H 109 H Respiratory Rate 19 Blood Pressure 90/61 L 98/60 L Pulse Oximetry 96 02/27/20 19:34 02/27/20 19:36 02/27/20 19:41 Temperature Pulse Rate 79 79 78 Respiratory Rate 18 18 Blood Pressure Pulse Oximetry 95 02/27/20 20:00 02/27/20 21:12 02/27/20 22:00 Temperature 36.8 C 36.3 C L Pulse Rate 79 89 84 Respiratory Rate 19 22 H Blood Pressure 107/53 L 108/64 Pulse Oximetry 95 95 02/27/20 23:15 02/27/20 23:42 02/28/20 00:00 Temperature 36.4 C Pulse Rate 79 73 74 Respiratory Rate 18 19 Blood Pressure 120/69 Pulse Oximetry 96 95 02/28/20 00:28 02/28/20 00:30 02/28/20 01:52 Temperature Pulse Rate 77 83 79 Respiratory Rate 18 22 H Blood Pressure 120/69 Pulse Oximetry 94 02/28/20 02:00 02/28/20 03:30 02/28/20 04:00 Temperature 37.2 C 36.8 C Pulse Rate 80 124 H 116 H Respiratory Rate 20 23 H Blood Pressure 124/67 106/60 Pulse Oximetry 95 94 02/28/20 04:19 02/28/20 05:00 02/28/20 05:02 Temperature Pulse Rate 79 84 83 Respiratory Rate 21 H Blood Pressure Pulse Oximetry 95 02/28/20 06:00 02/28/20 06:31 02/28/20 08:00 Temperature 36.4 C L 36.2 C L Pulse Rate 85 84 91 Respiratory Rate 18 14 Blood Pressure 115/61 115/61 134/79 Pulse Oximetry 96 93 02/28/20 08:08 02/28/20 09:13 Temperature Pulse Rate 92 92 Respiratory Rate 23 H Blood Pressure Pulse Oximetry Intake/Output Intake/Output: Intake & Output 02/25/20 02/26/20 02/27/20/03/20 23:59 23:59 23:59 23:59 Intake Total 1646 5891 1849 1243 Output Total 7465 2226 8496 749 Balance -254 -402 066 945 Meds/Results Medications: Active Medi
--- NOTE | 2020-02-28 11:01 | WPDINTPN ---
Progress Note: A&P Assessment and Plan (1) Atrial fibrillation with RVR: Code(s): I48.91 - Unspecified atrial fibrillation Status: Acute Assessment and Plan: - echocardiogram 02/24/2020 showed normal LV systolic function with EF 60-65%. LV diastolic function is abnormal, left atrium moderately enlarged, right atrium moderately enlarged. Moderate aortic valve sclerosis, severe mitral valve regurg, severe tricuspid valve regurg, moderate pulmonary hypertension with RVSP of 56 mmHg - patient given metoprolol 5 mg IV x1 with minimal improvement - atrial fibrillation likely related to severe mitral valve regurg severe tricuspid regurg along with COPD. - currently in sinus rhythm, rate control, on amiodarone infusion and 1 mg/ minute - cardiology following the patient - continue therapeutic Lovenox (2) Acute respiratory failure: Code(s): J96.00 - Acute respiratory failure, unspecified whether with hypoxia or hypercapnia Status: Acute Assessment and Plan: patient with acute respiratory failure likely related to pneumonia, COPD exacerbation, volume overload. Could be related to systolic dysfunction severe mitral and tricuspid regurg. - patient was in impending respiratory failure, was intubated on 12/23/2019 - currently on CMV mode of ventilation, weaning FiO2 , will place patient on ASV mode of ventilation as patient is more awake - chest x-ray shows progression of pneumonia and/or edema and likely increase in pleural effusions - ABGs reviewed, ventilator adjusted - continue cefepime and vancomycin ( started on 02/26/2020), - continue bronchodilators - currently off Precedex infusion - will diurese patient today (3) CAP (community acquired pneumonia): Code(s): J18.9 - Pneumonia, unspecified organism Status: Acute Assessment and Plan: community-acquired pneumonia with acute respiratory failure, pulmonary edema, pleural effusion. . - continue antibiotics as above - sputum cultures are negative - blood cultures from 02/21/2020, negative x2 (4) Suspected 2019 novel coronavirus infection: Code(s): Z20.828 - Contact with and (suspected) exposure to other viral communicable diseases Status: Acute Assessment and Plan: SARS-CoV-2 PCR NEGATIVE - all precautions were discontinued (5) Hypertension: Code(s): I10 - Essential (primary) hypertension Status: Acute Assessment and Plan: continue amlodipine and mental (6) Dietary counseling and surveillance: Code(s): Z71.3 - Dietary counseling and surveillance Status: Acute Assessment and Plan: patient tolerating tube feeds, positive bowel movement (7) DVT prophylaxis: Code(s): Z29.9 - Encounter for prophylactic measures, unspecified Status: Acute Assessment and Plan: DVT prophylaxis: therapeutic Lovenox stress ulcer prophylaxis: Protonix Additional Plan discussed with son Pablo, updated him with patient's condition and plan of care. I answered all questions. Code status: no CPR critical care time spent: 32 minutes Due to a high probability of clinically significant, life threatening deterioration, the patient required my highest level of preparedness to intervene emergently and I personally spent this critical care time directly and personally managing the patient. This critical care time included obtaining a history; examining the patient; pulse oximetry; ordering and review of studies; arranging urgent treatment with development of a management plan; evaluation of patient's response to treatment; frequent reassessment; and discussions with other providers. It was exclusive of separately billable procedures and treating other patients and teaching time. Please see Assessment and Plan section and the rest of the note for further information on patient assessment and treatment Subjective Date/time seen: 02/28/20 11:01 Inter
[2020-02-28 11:32] LABS: Glucose Point of Care 148 (65-105)
[2020-02-28] MEDS: POTASSIUM CHLORIDE 20 MEQ PACKET (FOR LIQUID) 40 MEQ PO (12:32)
--- NOTE | 2020-02-28 16:06 | PM.IMPN ---
Progress Note: A&P Assessment and Plan (1) COPD exacerbation: Code(s): J44.1 - Chronic obstructive pulmonary disease with (acute) exacerbation Status: Acute Assessment and Plan: The patient has been admitted for COPD exacerbation vs. pneumonia. Continue bronchodilators, oxygen supplementation, steroid therapy. The patient was treated with antibiotics in the ER [facility]. 02/28/20 16:06 patient is 80-year-old female with history of COPD presented emergency department with a complaint of cough shortness of patient was hypoxic on room air and patient was placed on oxygen and treated for exacerbation of COPD, she was tested for COVID and negative, initially patient was admitted to IMU then became hypoxic and was emergently intubated and transferred to ICU, patient developed new onset atrial fibrillation is being treated with IV amiodarone, rate is controlled and anticoagulated with Lovenox, patient is severe mitral and tricuspid valve regurgitation on echogram with normal ejection fraction of 60%, patient is not a candidate for surgical intervention of her valvular disease, currently patient on vent, and prognosis is poor, today 02/27 patient is seen by microsoft dynamics ax developer and welder boilermaker, welder boilermaker recommending once patient is off the vent will switch amiodarone to p.o., patient is DNR and appropriate, microsoft dynamics ax developer spoke with the patient's family, and further recommendation to follow (2) Suspected 2019 novel coronavirus infection: Code(s): Z20.828 - Contact with and (suspected) exposure to other viral communicable diseases Status: Acute Assessment and Plan: Continue droplet isolation. Covid-19 results pending. Continue supportive care. (3) Lumbosacral spondylosis with radiculopathy: Code(s): M47.27 - Other spondylosis with radiculopathy, lumbosacral region Status: Chronic Assessment and Plan: Continue pain control as needed. Subjective Date/time seen: 02/28/20 16:06 patient is 80-year-old female with history of COPD presented emergency department with a complaint of cough shortness of patient was hypoxic on room air and patient was placed on oxygen and treated for exacerbation of COPD, she was tested for COVID and negative, initially patient was admitted to IMU then became hypoxic and was emergently intubated and transferred to ICU, patient developed new onset atrial fibrillation is being treated with IV amiodarone, rate is controlled and anticoagulated with Lovenox, patient is severe mitral and tricuspid valve regurgitation on echogram with normal ejection fraction of 60%, patient is not a candidate for surgical intervention of her valvular disease, currently patient on vent, and prognosis is poor, today 02/27 patient is seen by microsoft dynamics ax developer and welder boilermaker, welder boilermaker recommending once patient is off the vent will switch amiodarone to p.o., patient is DNR and appropriate, microsoft dynamics ax developer spoke with the patient's family, and further recommendation to follow Review of Systems Review of Systems: ROS unobtainable: Yes unobtainable due to endotracheal tube Exam Const: General: comfortable and no acute distress HENMT: General nose exam: Normal nares present Other: ET tube in place Eyes: Sclera: sclerae normal Neck: Neck: supple Resp: Other: bilateral fair air entry with harsh breast Cardio: Rate: regular rate Rhythm: regular rhythm GI: Auscultation: normal bowel sounds Skin: General skin exam: normal color Neuro: Other: patient on vent and sedated Extrem: General: normal to inspection Psych: Other: patient on vent and sedated Objective Data Vital Signs Vital Signs: Vital Signs - 24 hr 02/27/20 16:32 02/27/20 16:55 02/27/20 16:56 Temperature 98.6 F Pulse Rate 113 H 117 H Respiratory Rate 18 Blood Pressure 117/65 Pulse Oximetry 02/27/20 17:23 02/27/20 17:46 02/27/20 17:47 Temperature Pulse Rate 121 H 114 H 104 H Respiratory Rate 19 Blo
[2020-02-28 17:00] LABS: Glucose Point of Care 146 (65-105)
[2020-02-28] MEDS: ALPRAZolam (*CRX) 0.25 MG TABLET PO (20:53)
[2020-02-28 23:46] LABS: Glucose Point of Care 167 (65-105)
[2020-02-29] VITALS (36 sets, daily range): BP systolic 104–166; BP diastolic 60–85; PULSE 68–103; RESP 12–24; TEMP 36.6–37.4; O2SAT 85–97
[2020-02-29] MEDS: AMIODARONE 360 MG/D5W 200 ML 360 MG/200 ML BAG 33.3 MG IV CONT ×3 (00:37→17:30)
[2020-02-29] MEDS: IPRATROPIUM BR 0.02% INH SOLN 0.5 MG/2.5 ML VIAL INHALATION ×4 (02:26→20:48)
[2020-02-29] MEDS: LEVALBUTEROL NEB 1.25 MG/3 ML 0.63 MG INHALATION ×4 (02:26→20:48)
[2020-02-29] MEDS: ENOXAPARIN 80 MG/0.8 ML SYRINGE 65 MG SUB-Q ×2 (02:35→14:04)
[2020-02-29 04:09] LABS: Alveolar/Arterial O2 Gradient 168.3 mmHg; Base Excess ABG 9.3 mEq/l (+/-2.0); Carboxyhemoglobin 0.2 % THb (0-2.0); Fractional Inspired Oxygen 40 %; HCO3 ABG 32.1 mEq/l (22.0-26.0); Methemoglobin ABG 0.3 %THb (0-1.5); Oxygen Content ABG 14.4 %vol (16.0-22.0); Oxygen Saturation ABG 96.6 % (95.0-100.0); Oxyhemoglobin 94.3 % THb (90.0-100.0); PCO2 ABG 36.8 mmHg (35.0-45.0); PO2 ABG 74.6 mmHg (80.0-100.0); PO2 FiO2 Ratio Arterial Blood 1.87 %; Reduced Hemoglobin 5.2 %THb (0-5.0); Total Hemoglobin 10.8 g/dL (12.0-18.0)
[2020-02-29 04:11] LABS: Site Drawn LEFT RADIAL; pH ABG 7.558 (7.350-7.450)
[2020-02-29 04:12] LABS: Device VENTILATOR; Modified Allen's Test Pass
[2020-02-29 04:13] LABS: Arterial Blood Gas Ventilator rate 18 /MIN
[2020-02-29 04:14] LABS: Arterial Blood Gas PEEP 8 cmH2O; Arterial Blood Gas Tidal Volume 300 ml; Arterial Blood Gas Vent Mode CMV
[2020-02-29 04:32] LABS: Hematocrit 28.5 % (37.0-47.0); Hemoglobin 9.7 g/dL (12.0-15.0); Mean Corpuscular Hemoglobin 32.7 pg (26-34); Mean Platelet Volume 11.4 fl (7.4-10.4); Platelet Count Result 171 k/mm3 (150-375); Red Blood Count 2.97 M/mm3 (4.2-5.4); Red Cell Distribution Width 15.2 % (11.5-14.5); White Blood Count 14.1 K/mm3 (4.5-10.0)
[2020-02-29 04:48] LABS: Anion Gap 8 mmol/L (8-16); Blood Urea Nitrogen 62 mg/dL (7-17); Calcium 7.7 mg/dL (8.4-10.2); Carbon Dioxide 35 mmol/L (22-30); Chloride 89 mmol/L (98-107); Estimated CRCL calculation 31 ml/min; Estimated Glomerular Filt Rate 48; Glucose 270 mg/dL (65-105); Magnesium 2.6 mg/dL (1.6-2.3); Phosphorus 3.4 mg/dL (2.5-4.5); Potassium 4.1 mmol/L (3.4-5.0); Sodium 132 mmol/L (137-145)
[2020-02-29] MEDS: methylPREDNISolone SOD SUCC 125 MG VIAL 60 MG IV PUSH ×3 (05:47→17:26)
[2020-02-29 05:52] LABS: Glucose Point of Care 217 (65-105)
[2020-02-29] MEDS: INSULIN ASPART (*BKC) 100 UNITS/ML SUB-Q ×2 (06:35→14:03)
[2020-02-29] MEDS: METOPROLOL TARTRATE 25 MG TABLET PO ×2 (08:18→20:20)
[2020-02-29] MEDS: CEFEPIME 0.5 GM in DEXTROSE 5% IN WATER 50 ML IVPB ×2 (08:18→20:20)
[2020-02-29] MEDS: PANTOPRAZOLE SODIUM IV 40 MG VIAL IV PUSH (08:19)
--- NOTE | 2020-02-29 09:21 | WPDINTPN ---
Progress Note: A&P Assessment and Plan (1) Atrial fibrillation with RVR: Code(s): I48.91 - Unspecified atrial fibrillation Status: Acute Assessment and Plan: - echocardiogram 02/24/2020 showed normal LV systolic function with EF 60-65%. LV diastolic function is abnormal, left atrium moderately enlarged, right atrium moderately enlarged. Moderate aortic valve sclerosis, severe mitral valve regurg, severe tricuspid valve regurg, moderate pulmonary hypertension with RVSP of 56 mmHg - atrial fibrillation likely related to severe mitral valve regurg severe tricuspid regurg along with COPD. - currently in sinus rhythm, rate control, on amiodarone infusion and 1 mg/ minute, metoprolol per tube - cardiology following the patient - continue therapeutic Lovenox (2) Acute respiratory failure: Code(s): J96.00 - Acute respiratory failure, unspecified whether with hypoxia or hypercapnia Status: Acute Assessment and Plan: patient with acute respiratory failure likely related to pneumonia, COPD exacerbation, volume overload. Could be related to systolic dysfunction severe mitral and tricuspid regurg. - intubated on 12/23/2019 - currently on CMV mode of ventilation, weaning FiO2 - chest x-ray and ABGs reviewed, ventilator adjusted - continue cefepime and vancomycin ( started on 02/26/2020), for total of 5 days - continue bronchodilators - currently on Precedex, placed patient on SBT and will evaluate for extubation - will diurese patient today (3) CAP (community acquired pneumonia): Code(s): J18.9 - Pneumonia, unspecified organism Status: Acute Assessment and Plan: community-acquired pneumonia with acute respiratory failure, pulmonary edema, pleural effusion. . - continue antibiotics as above - sputum cultures are negative - blood cultures from 02/21/2020, negative x2 (4) Suspected 2019 novel coronavirus infection: Code(s): Z20.828 - Contact with and (suspected) exposure to other viral communicable diseases Status: Acute Assessment and Plan: SARS-CoV-2 PCR NEGATIVE - all precautions were discontinued (5) Hypertension: Code(s): I10 - Essential (primary) hypertension Status: Acute Assessment and Plan: continue amlodipine and metoprolol (6) Dietary counseling and surveillance: Code(s): Z71.3 - Dietary counseling and surveillance Status: Acute Assessment and Plan: patient tolerating tube feeds, positive bowel movement - will hold tube feeds for possible extubation (7) DVT prophylaxis: Code(s): Z29.9 - Encounter for prophylactic measures, unspecified Status: Acute Assessment and Plan: DVT prophylaxis: therapeutic Lovenox stress ulcer prophylaxis: Protonix Additional Plan discussed with asad Shah, updated him with patient's condition and plan of care. I answered all questions. Code status: no CPR critical care time spent: 32 minutes Due to a high probability of clinically significant, life threatening deterioration, the patient required my highest level of preparedness to intervene emergently and I personally spent this critical care time directly and personally managing the patient. This critical care time included obtaining a history; examining the patient; pulse oximetry; ordering and review of studies; arranging urgent treatment with development of a management plan; evaluation of patient's response to treatment; frequent reassessment; and discussions with other providers. It was exclusive of separately billable procedures and treating other patients and teaching time. Please see Assessment and Plan section and the rest of the note for further information on patient assessment and treatment Subjective Date/time seen: 02/29/20 09:21 Interval history: Reason for consult: acute respiratory failure, pneumonia, COPD exacerbation - intubated on 02/23/2020 - COVID-19
[2020-02-29] MEDS: FUROSEMIDE INJ 40 MG/4 ML VIAL 20 MG IV PUSH (09:51)
[2020-02-29 11:31] LABS: Alveolar/Arterial O2 Gradient 186.3 mmHg; Base Excess ABG 9.3 mEq/l (+/-2.0); Fractional Inspired Oxygen 40 %; HCO3 ABG 32.2 mEq/l (22.0-26.0); Oxygen Content ABG 14.3 %vol (16.0-22.0); Oxygen Saturation ABG 92.6 % (95.0-100.0); Oxyhemoglobin 89.1 % THb (90.0-100.0); PCO2 ABG 37.4 mmHg (35.0-45.0); PO2 ABG 55.9 mmHg (80.0-100.0); Total Hemoglobin 11.4 g/dL (12.0-18.0)
[2020-02-29 11:32] LABS: Arterial Blood Gas Vent Mode SPONTANEOUS; Device VENTILATOR; Modified Allen's Test Pass; Site Drawn RIGHT RADIAL; pH ABG 7.553 (7.350-7.450)
[2020-02-29 11:33] LABS: Arterial Blood Gas PEEP 5 cmH2O; Arterial Blood Gas Pressure Support 8 cmH2O
--- NOTE | 2020-02-29 11:49 | PM.PNCARD ---
Progress Note: A&P Additional Plan Now that the patient is extubated will have to decide on transitioning her to oral amiodarone in hopes of maintaining sinus rhythm. As I have stated in my previous notes her prognosis is poor given the fact that she is not a candidate for valvular surgery and also has severe underlying COPD. Rex Rapp MD [facility] Subjective Date/time seen: Date of service: 02/29/20 11:49 Interval history: Follow-up for: Mitral regurgitation and tricuspid regurgitation, atrial fibrillation with rapid ventricular response, valvular disease , acute respiratory failure, pneumonia, COPD exacerbation Date of service: 02/29/20 Subjective: Patient extubated this morning. So far tolerating extubation. Maintaining normal sinus rhythm with intravenous amiodarone. Discussion with the patient and son who are in the room regarding limited prognosis regarding her significant valvular disease. They understand this well. Patient does not wish to be reintubated if respiratory status once again declines. Exam Const: General: comfortable Other: Elderly frail lady responsive and alert in the ICU. Does have some conversational shortness of breath. HENMT: Mouth: Yes dry mucous membranes Eyes: Sclera: sclerae normal Neck: Neck: supple Resp: Effort & Inspection: normal respiratory effort Other: Breath sounds diminished in both lung vega. No obvious pulmonary rales Cardio: Rate: regular rate Rhythm: regular rhythm Other: Holosystolic grade 2/6 MR murmur audible at the apex GI: Auscultation: normal bowel sounds Skin: General skin exam: normal color Neuro: Cognition (Neuro): normal cognition Other: Patient responsive normal cognition responses are slow but appropriate Extrem: Other: No peripheral edema Objective Data Vital Signs Vital Signs: Vital Signs - 24 hr 02/28/20 11:55 02/28/20 12:00 02/28/20 12:24 Temperature 37.5 C Pulse Rate 93 92 90 Respiratory Rate 30 H Blood Pressure 158/75 H 158/75 H Pulse Oximetry 90 02/28/20 14:00 02/28/20 14:14 02/28/20 14:15 Temperature 37.6 C H Pulse Rate 92 92 89 Respiratory Rate 27 H 24 H Blood Pressure 158/79 H Pulse Oximetry 91 93 02/28/20 14:21 02/28/20 15:28 02/28/20 16:00 Temperature Pulse Rate 89 89 88 Respiratory Rate 30 H 20 Blood Pressure Pulse Oximetry 02/28/20 16:02 02/28/20 17:06 02/28/20 18:00 Temperature 37.5 C 37.6 C H Pulse Rate 87 88 86 Respiratory Rate 18 18 Blood Pressure 137/69 131/71 Pulse Oximetry 97 96 95 02/28/20 18:28 02/28/20 19:30 02/28/20 20:00 Temperature 37.4 C Pulse Rate 88 86 85 Respiratory Rate 19 19 Blood Pressure 131/71 127/69 137/72 Pulse Oximetry 96 97 02/28/20 20:17 02/28/20 20:19 02/28/20 20:30 Temperature Pulse Rate 85 86 85 Respiratory Rate 19 24 H Blood Pressure Pulse Oximetry 97 02/28/20 20:54 02/28/20 22:00 02/28/20 23:09 Temperature 36.9 C Pulse Rate 83 84 81 Respiratory Rate 18 Blood Pressure 145/75 H Pulse Oximetry 96 96 02/28/20 23:45 02/28/20 23:57 02/29/20 00:00 Temperature 37.1 C Pulse Rate 72 70 77 Respiratory Rate 17 18 17 Blood Pressure 128/72 128/73 Pulse Oximetry 97 97 02/29/20 00:36 02/29/20 00:37 02/29/20 02:00 Temperature Pulse Rate 70 70 77 Respiratory Rate 19 Blood Pressure 122/73 122/73 117/63 Pulse Oximetry 96 02/29/20 02:10 02/29/20 02:27 02/29/20 02:29 Temperature Pulse Rate 77 77 77 Respiratory Rate 24 H 24 H Blood Pressure Pulse Oximetry 96 02/29/20 03:32 02/29/20 04:00 02/29/20 04:01 Temperature 36.6 C Pulse Rate 68 72 77 Respiratory Rate 18 17 Blood Pressure 124/71 Pulse Oximetry 97 95 96 02/29/20 04:22 02/29/20 05:50 02/29/20 05:53 Temperature Pulse Rate 79 70 68 Respiratory Rate 17 17 Blood Pressure 118/60 Pulse Oximetry 02/29/20 06:00 02/29/20 08:00 02/29/20 08:18 Temperature 36.8 C 36.9 C Pulse Rate 77 83 76 R
[2020-02-29 13:55] LABS: Glucose Point of Care 230 (65-105)
--- NOTE | 2020-02-29 15:29 | PM.IMPN ---
Progress Note: A&P Assessment and Plan (1) COPD exacerbation: Code(s): J44.1 - Chronic obstructive pulmonary disease with (acute) exacerbation Status: Acute Assessment and Plan: The patient has been admitted for COPD exacerbation vs. pneumonia. Continue bronchodilators, oxygen supplementation, steroid therapy. [facility] 02/29/20 15:29 patient is 80-year-old female with history of COPD presented emergency department with a complaint of cough shortness of patient was hypoxic on room air and patient was placed on oxygen and treated for exacerbation of COPD, she was tested for COVID and negative, initially patient was admitted to IMU then became hypoxic and was emergently intubated and transferred to ICU, patient developed new onset atrial fibrillation is being treated with IV amiodarone, rate is controlled and anticoagulated with Lovenox, patient is severe mitral and tricuspid valve regurgitation on echogram with normal ejection fraction of 60%, patient is not a candidate for surgical intervention of her valvular disease, currently patient on vent, and prognosis is poor, today 02/27 patient is seen by picker feeder and windshield installer, Today patient was extubated patient is still quite somnolent, her son is present in room, discussed with him, is thinking about hospice care after a speaks with his older brother and further recommendation to follow, (2) Suspected 2019 novel coronavirus infection: Code(s): Z20.828 - Contact with and (suspected) exposure to other viral communicable diseases Status: Acute Assessment and Plan: Continue droplet isolation. Covid-19 results pending. Continue supportive care. (3) Lumbosacral spondylosis with radiculopathy: Code(s): M47.27 - Other spondylosis with radiculopathy, lumbosacral region Status: Chronic Assessment and Plan: Continue pain control as needed. Subjective Date/time seen: 02/29/20 15:29 patient is 80-year-old female with history of COPD presented emergency department with a complaint of cough shortness of patient was hypoxic on room air and patient was placed on oxygen and treated for exacerbation of COPD, she was tested for COVID and negative, initially patient was admitted to IMU then became hypoxic and was emergently intubated and transferred to ICU, patient developed new onset atrial fibrillation is being treated with IV amiodarone, rate is controlled and anticoagulated with Lovenox, patient is severe mitral and tricuspid valve regurgitation on echogram with normal ejection fraction of 60%, patient is not a candidate for surgical intervention of her valvular disease, currently patient on vent, and prognosis is poor, today 02/27 patient is seen by picker feeder and windshield installer, Today patient was extubated patient is still quite somnolent, her son is present in room, discussed with him, is thinking about hospice care after a speaks with his older brother and further recommendation to follow, Review of Systems Review of Systems: ROS unobtainable: Yes unobtainable due to medical condition Exam Narrative: Exam Narrative: patient was just extubated quite somnolent Const: General: comfortable and no acute distress HENMT: General nose exam: Normal nares present Eyes: Sclera: sclerae normal Neck: Neck: supple Resp: Other: bilateral fair air entry with harsh breath sound Cardio: Rate: regular rate Rhythm: regular rhythm GI: Auscultation: normal bowel sounds Skin: General skin exam: normal color Neuro: Other: patient was just extubated quite somnolent Extrem: General: normal to inspection Psych: Other: patient was just extubated quite somnolent Objective Data Vital Signs Vital Signs: Vital Signs - 24 hr 02/28/20 16:00 02/28/20 16:02 02/28/20 17:06 Temperature 99.5 F Pulse Rate 88 87 88 Respiratory Rate 18 Blood Pressure 137/69 Pulse Oximetry 97 96
[2020-02-29 16:31] LABS: Vancomycin Trough 5.1 ug/mL (10.0-20.0)
[2020-02-29 17:32] LABS: Glucose Point of Care 135 (65-105)
[2020-02-29] MEDS: ALPRAZolam (*CRX) 0.25 MG TABLET PO (20:20)
[2020-02-29] MEDS: CENTRAL LINE FLUSH 10 ML IV PUSH (20:21)
--- NOTE | 2020-02-29 20:54 | PC.NURSE ---
AROUND 1930 TONIGHT, PATIENT EXPRESSED THAT SHE NO LONGER WANTED TO WEAR THE HIGH FLOW THERAPY (AIRVO) ANYMORE. SHE DID NOT TOLERATE THE BIPAP AND AND DOES NOT WANT TO BE INTUBATED AGAIN. PATIENT EXPRESSES THAT SHE UNDERSTANDS THE RISKS OF STOPPING OXYGEN THERAPY. SHE IS CURRENTLY A DNR AND IS A&OX4. SON (LISA) WAS CALLED AND UPDATED ON HER CURRENT STATUS. HE UNDERSTANDS HER WISHES AND HAS BEEN MADE AWARE THAT THE PATIENT IS EXPRESSING THE DESIRE FOR COMFORT MEASURES. RABBIT FANCIER UPDATED AND GAVE ORDERS FOR COMFORT CARE. HOSPITALIST UPDATED WELL. WILL CONTINUE TO MONITOR PATIENT FOR CHANGES IN STATUS AND WILL FOLLOW CURRENT PLAN OF CARE. WHEN THE ORDERS ARE IN PLACE, NURSING WILL DISCONTINUE HIGH FLOW THERAPY AND MAKE THE PATIENT COMFORTABLE.
[2020-02-29] MEDS: MORPHINE SULFATE INJ (*CRX) 50 MG in SODIUM CHLORIDE 0.9% IV 95 ML IV CONT (23:11)
[2020-03-01] VITALS: BP 170/75; PULSE 78; RESP 20; TEMP 37; O2SAT 78
[2020-03-01] MEDS: CENTRAL LINE FLUSH 10 ML IV PUSH (04:33)
[2020-03-01] MEDS: MORPHINE SULFATE (*CRX) 2 MG/ML INJ IV PUSH (04:37)
[2020-03-01] MEDS: LORazepam INJ (*CRX) 2 MG/ML VIAL 1 MG IV PUSH (04:37)
[2020-03-01 06:44] VITALS: BP 154/71; PULSE 87; RESP 22; O2SAT 70
--- NOTE | 2020-03-01 06:55 | PM.EVENT ---
Event Note Event Note Event Note: The patient has decided to proceed with comfort care. The family wants to admit the patient to [facility] if possible. Morphine drip, p.r.n. morphine pushes and p.r.n. Ativan have been ordered. I placed orders to transfer the patient to the medical floor.
[2020-03-01 08:00] VITALS: BP 128/78; PULSE 88; RESP 13; TEMP 34.8; O2SAT 65
--- NOTE | 2020-03-01 11:22 | PCDIET ---
Nutrition Follow-Up Complete: Nutrition Diagnosis: Inadequate oral intake related to oral intubation as evidenced by NPO status. Nutrition Goal: Patient to meet estimated nutritional needs. Goal previously met with tube feedings. Patient since extubated with plan for comfort care. Regular diet appropriate, as tolerated. No further recommendations at this time, but will continue to monitor for plan of care. Last recorded weight is 63.3 kg which is down from last review but increased from admission. Bowel Motility: BM x 2 on 02/26/20. Labs Reviewed: Glu (135) Meds Noted: Morphine, Xanax, Ativan Additional Notes: No documented skin breakdown. Nutrition Monitoring and Evaluation: Follow up every 3 days.
--- NOTE | 2020-03-01 12:50 | PM.DS ---
DS: Admitting Diagnosis Admitting Diagnosis Admitting Diagnosis: PNEUMONIA, COPD EXACERB DS: Discharge Diagnosis Discharge Diagnosis (1) COPD exacerbation: Code(s): J44.1 - Chronic obstructive pulmonary disease with (acute) exacerbation Status: Acute Assessment and Plan: The patient has been admitted for COPD exacerbation vs. pneumonia. Continue bronchodilators, oxygen supplementation, steroid therapy. The patient was treated with antibiotics in the ER [facility]. 02/29/20 15:29 patient is 80-year-old female with history of COPD presented emergency department with a complaint of cough shortness of patient was hypoxic on room air and patient was placed on oxygen and treated for exacerbation of COPD, she was tested for COVID and negative, initially patient was admitted to IMU then became hypoxic and was emergently intubated and transferred to ICU, patient developed new onset atrial fibrillation is being treated with IV amiodarone, rate is controlled and anticoagulated with Lovenox, patient is severe mitral and tricuspid valve regurgitation on echogram with normal ejection fraction of 60%, patient is not a candidate for surgical intervention of her valvular disease, currently patient on vent, and prognosis is poor, today 02/27 patient is seen by grating machine operator and music producer, Today patient was extubated patient is still quite somnolent, her son is present in room, discussed with him, is thinking about hospice care after a speaks with his older brother and further recommendation to follow, (2) Suspected 2019 novel coronavirus infection: Code(s): Z20.828 - Contact with and (suspected) exposure to other viral communicable diseases Status: Acute Assessment and Plan: Continue droplet isolation. Covid-19 results pending. Continue supportive care. (3) Lumbosacral spondylosis with radiculopathy: Code(s): M47.27 - Other spondylosis with radiculopathy, lumbosacral region Status: Chronic Assessment and Plan: Continue pain control as needed. DS: Summary Hospital Course Reason for hospitalization: Chief complaint: PNEUMONIA, COPD EXACERB Narrative: This is a pleasant 80 year old female with known COPD and chronic back pain who presented to the hospital with a complaint of exertional dyspnea for the past 3 days. The patient just was tested for Coronavirus and expects the results will be back on Sunday. She denies any fevers, chills, cough, sore throat, chest pain, abdominal pain, dysuria, hematuria, headache, LE swelling, rectal bleeding, or wheezing. She was evaluated in the ER and was found to be hypoxic on room air. She was placed on supplemental oxygen and CXR demonstrated b/l pleural effusions. Hospital Course: patient is 80-year-old female with history of COPD presented emergency department with a complaint of cough shortness of patient was hypoxic on room air and patient was placed on oxygen and treated for exacerbation of COPD, she was tested for COVID and negative, initially patient was admitted to IMU then became hypoxic and was emergently intubated and transferred to ICU, patient developed new onset atrial fibrillation is being treated with IV amiodarone, rate is controlled and anticoagulated with Lovenox, patient is severe mitral and tricuspid valve regurgitation on echogram with normal ejection fraction of 60%, patient is not a candidate for surgical intervention of her valvular disease, currently patient on vent, and prognosis is poor, today 02/27 patient is seen by grating machine operator and music producer, Today patient was extubated patient is still quite somnolent, her son is present in room, discussed with him, is thinking about hospice care after a speaks with his older brother and further recommendation to follow, patient's family has decided to place the patient in the hospice care will discharge her today. Status at Discharge Functional status at discharge: bed bound Overall status
--- NOTE | 2020-03-01 13:37 | PC.NURSE ---
1252 Patient discharged to [facility] care under new V number.
== END 2020-03-01 12:52 | disposition hospice, inpatient (51) | DRG 207 ==
LOC: ANHED 18:31 → ANHICU 19:11 → ANH3MEDSUR 02-22 02:26 → ANHICU 02-23 03:24
PROVIDERS: Emergency Medicine; Family Medicine; Internal Medicine; Physician Assistant; Admitting Provider Internal Medicine; Emergency Provider Emergency Medicine; PCP Internal Medicine; Visit Provider Family Medicine
DX: J44.0 Chronic obstructive pulmonary disease with (acute) lower respiratory infection (principal); J18.9 Pneumonia, unspecified organism; J96.00 Acute respiratory failure, unspecified whether with hypoxia or hypercapnia; J44.1 Chronic obstructive pulmonary disease with (acute) exacerbation; M47.27 Other spondylosis with radiculopathy, lumbosacral region; I48.91 Unspecified atrial fibrillation; I10 Essential (primary) hypertension; Z20.828 Contact with and (suspected) exposure to other viral communicable diseases; I08.1 Rheumatic disorders of both mitral and tricuspid valves; Z66 Do not resuscitate
CPT/HCPCS: 31500; 36415; 36569; 36600; 70450; 71045; 71046; 71275; 74019; 80048; 80053; 80202; 82375; 82728; 82805; 83050; 83605; 83615; 83735; 83880; 84100; 84484; 85025; 85027; 85380; 85610; 85730; 86140; 87040; 87070; 87205; 87635; 93005; 93306; 94002; 94003; 94640; 96361; 96365; 96366; 96367; 96375; 96376; 99285; A9270; C1751; C9113; C9803; G0378; J0282; J0456; J0692; J0696; J1650; J1815; J1940; J2060; J2250; J2270; J2930; J3010; J3370; J3480; J7040; J7050; J7120; Q9967; U0003

== ENCOUNTER 2020-03-01 12:53 | HOS | payer OTHER, MEDICARE, SELFPAY ==
--- NOTE | 2020-03-01 12:53 | PC.NURSE ---
This patient, Amber Hancock, was admitted to Intensive Care Unit-11 as hospice overflow. Patient/family oriented to hospital policies and general routines including ID bracelet, bed and alarms, visiting hours, pain management, procedures, bathroom and other care routines, personal items, smoking policy, room service/diet, and visiting hours. Patient/Family are encouraged to report perceived risks to care and to ask questions if they do not understand what they are told or what they should do.
[2020-03-01 13:34] VITALS: BMI 27.2
--- NOTE | 2020-03-01 14:27 | PM.IMHP ---
H&P: HPI History of Present Illness Date/Time: 03/01/20 14:27 Chief complaint: respiratory failure Narrative: Amber Hancock is a 80 year old female patient is 80-year-old female with history of COPD presented emergency department with a complaint of cough shortness of patient was hypoxic on room air and patient was placed on oxygen and treated for exacerbation of COPD, she was tested for COVID and negative, initially patient was admitted to IMU then became hypoxic and was emergently intubated and transferred to ICU, patient developed new onset atrial fibrillation is being treated with IV amiodarone, rate is controlled and anticoagulated with Lovenox, patient is severe mitral and tricuspid valve regurgitation on echogram with normal ejection fraction of 60%, patient is not a candidate for surgical intervention of her valvular disease, currently patient on vent, and prognosis is poor, today 02/27 patient is seen by door captain and screen printer, on 02/28 patient was extubated patient is still quite somnolent, her son is present in room, discussed with him, family has decided to place under hospice care, patient is being admitted to hospice care Review of Systems Review of Systems: ROS unobtainable: Yes unobtainable due to medical condition PMFSH Social History Social History Smoking packs per day: 1 Smoking cigarettes per day: 20.0 Smoking status: Former smoker Tobacco type: cigarettes Second hand tobacco smoke exposure: No Smoking end date: 05/28/04 Alcohol intake: current Drinks per week: 1 Substance use: never Gender identity (if verbalized by the patient): Female Spiritual care concerns: No Meds Home Medications and Allergies Home Medications Medication Instructions Recorded Confirmed Type No Home Medications 03/01/20 03/01/20 History Allergies Allergy/AdvReac Type Severity Reaction Status Date / Time Sulfa (Sulfonamide Allergy Severe rash Verified 03/01/20 13:23 Antibiotics) lisinopril Allergy Intermediate Unknown Verified 03/01/20 13:23 Penicillins Allergy Mild Rash Verified 03/01/20 13:23 Exam Const: General: comfortable and no acute distress HENMT: General nose exam: Normal nares present Eyes: Sclera: sclerae normal Neck: Neck: supple Resp: Other: bilateral fair air entry with harsh breath sounds Cardio: Rate: regular rate Rhythm: regular rhythm GI: Auscultation: normal bowel sounds Skin: General skin exam: normal color Neuro: Other: patient is quite somnolent Extrem: General: normal to inspection Psych: Other: patient is quite somnolent Assessment and Plan Assessment and plan (1) Hospice care patient: Code(s): Z51.5 - Encounter for palliative care Status: Acute Assessment and Plan: Amber Hancock is a 80 year old female patient is 80-year-old female with history of COPD presented emergency department with a complaint of cough shortness of patient was hypoxic on room air and patient was placed on oxygen and treated for exacerbation of COPD, she was tested for COVID and negative, initially patient was admitted to IMU then became hypoxic and was emergently intubated and transferred to ICU, patient developed new onset atrial fibrillation is being treated with IV amiodarone, rate is controlled and anticoagulated with Lovenox, patient is severe mitral and tricuspid valve regurgitation on echogram with normal ejection fraction of 60%, patient is not a candidate for surgical intervention of her valvular disease, currently patient on vent, and prognosis is poor, today 02/27 patient is seen by door captain and screen printer, on 02/28 patient was extubated patient is still quite somnolent, her son is present in room, discussed with him, family has decided to place under hospice care, patient is being admitted to hospice care
--- NOTE | 2020-03-01 15:15 | PC.NURSE ---
This patient, Amber Hancock, was transferred to [facility] on 03/01/20 at 1510. Personal belongings sent with patient. Report given to YESENIA Blue. Appropriate documentation sent with patient.
[2020-03-01 15:30] VITALS: BP 140/63; PULSE 86; RESP 16; O2SAT 100
[2020-03-01 22:12] VITALS: BP 146/64; PULSE 88; RESP 16; O2SAT 87
[2020-03-01] MEDS: CENTRAL LINE FLUSH 10 ML IV PUSH (22:57)
[2020-03-01] MEDS: LORazepam INJ (*CRX) 2 MG/ML VIAL 1 MG IV PUSH (23:38)
[2020-03-02] MEDS: CENTRAL LINE FLUSH 10 ML IV PUSH ×3 (05:07→20:28)
--- NOTE | 2020-03-02 14:20 | PM.IMPN ---
Progress Note: A&P Assessment and Plan (1) Hospice care patient: Code(s): Z51.5 - Encounter for palliative care Status: Acute Assessment and Plan: 03/02/20 14:20 Amber Hancock is a 80 year old female patient is 80-year-old female with history of COPD presented emergency department with a complaint of cough shortness of patient was hypoxic on room air and patient was placed on oxygen and treated for exacerbation of COPD, she was tested for COVID and negative, initially patient was admitted to IMU then became hypoxic and was emergently intubated and transferred to ICU, patient developed new onset atrial fibrillation is being treated with IV amiodarone, rate is controlled and anticoagulated with Lovenox, patient is severe mitral and tricuspid valve regurgitation on echogram with normal ejection fraction of 60%, patient is not a candidate for surgical intervention of her valvular disease, currently patient on vent, and prognosis is poor, today 02/27 patient is seen by tire stripper and all terrain vehicle racer, on 02/28 patient was extubated patient is still quite somnolent, her son is present in room, discussed with him, family has decided to place under hospice care, patient is being admitted to hospice care today patient somnolent her son is present in the room,. Subjective Date/time seen: 03/02/20 14:20 Amber Hancock is a 80 year old female patient is 80-year-old female with history of COPD presented emergency department with a complaint of cough shortness of patient was hypoxic on room air and patient was placed on oxygen and treated for exacerbation of COPD, she was tested for COVID and negative, initially patient was admitted to IMU then became hypoxic and was emergently intubated and transferred to ICU, patient developed new onset atrial fibrillation is being treated with IV amiodarone, rate is controlled and anticoagulated with Lovenox, patient is severe mitral and tricuspid valve regurgitation on echogram with normal ejection fraction of 60%, patient is not a candidate for surgical intervention of her valvular disease, currently patient on vent, and prognosis is poor, today 02/27 patient is seen by tire stripper and all terrain vehicle racer, on 02/28 patient was extubated patient is still quite somnolent, her son is present in room, discussed with him, family has decided to place under hospice care, patient is being admitted to hospice care today patient somnolent her son is present in the room,. Review of Systems Review of Systems: ROS unobtainable: Yes unobtainable due to medical condition Exam Const: General: comfortable and no acute distress HENMT: General nose exam: Normal nares present Eyes: Sclera: sclerae normal Neck: Neck: supple Resp: Other: bilateral fair air entry with harsh breath sounds Cardio: Rate: regular rate Rhythm: regular rhythm GI: Auscultation: normal bowel sounds Skin: General skin exam: normal color Neuro: Other: patient is quite somnolent Extrem: General: normal to inspection Psych: Other: patient is quite somnolent Objective Data Vital Signs Vital Signs: Vital Signs - 24 hr 03/01/20 15:30 03/01/20 22:12 Pulse Rate 86 88 Respiratory Rate 16 16 Blood Pressure 140/63 146/64 H Pulse Oximetry 100 87 L Intake/Output Intake/Output: Intake & Output 02/28/20 02/29/20 03/01/20 03/02/20 23:59 23:59 23:59 23:59 Intake Total 120 Output Total 325 425 Balance -325 -305 Meds/Results Medications: Active Medications Generic Name Dose Route Start Last Admin Trade Name Freq PRN Reason Stop Dose Admin Acetaminophen 650 mg 03/01/20 13:43 Tylenol Suppository RECTAL Q6H PRN Fever Atropine Sulfate 0 drop 03/01/20 13:42 Atropine Sulfate 1% Ophth Roselyn SUBLINGUAL Q4H PRN EXCESS SECRETIONS Bisacodyl 10 mg 03/01/20 13:43 Dulcolax Suppository RECTAL DAILY PRN NO BM IN 3 DAYS Morphine Sulfate 50 mg/ Sodium 100 mls @ 2 mls/hr
[2020-03-02] MEDS: MORPHINE SULFATE INJ (*CRX) 50 MG in SODIUM CHLORIDE 0.9% IV 95 ML IV CONT (20:20)
[2020-03-02 20:57] VITALS: BP 146/50; PULSE 90; RESP 16; O2SAT 88
[2020-03-02] MEDS: LORazepam INJ (*CRX) 2 MG/ML VIAL 1 MG IV PUSH (20:58)
[2020-03-03] MEDS: MORPHINE SULFATE (*CRX) 2 MG/ML INJ IV PUSH ×4 (02:07→21:21)
[2020-03-03] MEDS: CENTRAL LINE FLUSH 10 ML IV PUSH ×3 (05:14→21:25)
[2020-03-03] MEDS: LORazepam INJ (*CRX) 2 MG/ML VIAL 1 MG IV PUSH ×3 (08:29→21:22)
[2020-03-03 09:30] VITALS: BP 136/55; PULSE 92; RESP 20; TEMP 36.7; O2SAT 88
--- NOTE | 2020-03-03 15:22 | PM.IMPN ---
Progress Note: A&P Assessment and Plan (1) Hospice care patient: Code(s): Z51.5 - Encounter for palliative care Status: Acute Assessment and Plan: 03/03/20 15:22 Amber Hancock is a 80 year old female patient is 80-year-old female with history of COPD presented emergency department with a complaint of cough shortness of patient was hypoxic on room air and patient was placed on oxygen and treated for exacerbation of COPD, she was tested for COVID and negative, initially patient was admitted to IMU then became hypoxic and was emergently intubated and transferred to ICU, patient developed new onset atrial fibrillation is being treated with IV amiodarone, rate is controlled and anticoagulated with Lovenox, patient is severe mitral and tricuspid valve regurgitation on echogram with normal ejection fraction of 60%, patient is not a candidate for surgical intervention of her valvular disease, currently patient on vent, and prognosis is poor, today 02/27 patient is seen by software computer specialist and dynamometer tuner, on 02/28 patient was extubated patient is still quite somnolent, her son is present in room, discussed with him, family has decided to place under hospice care, patient is being admitted to hospice care today on 03/03 patient somnolent her son is present in the room, Subjective Date/time seen: 03/03/20 15:22 Amber Hancock is a 80 year old female patient is 80-year-old female with history of COPD presented emergency department with a complaint of cough shortness of patient was hypoxic on room air and patient was placed on oxygen and treated for exacerbation of COPD, she was tested for COVID and negative, initially patient was admitted to IMU then became hypoxic and was emergently intubated and transferred to ICU, patient developed new onset atrial fibrillation is being treated with IV amiodarone, rate is controlled and anticoagulated with Lovenox, patient is severe mitral and tricuspid valve regurgitation on echogram with normal ejection fraction of 60%, patient is not a candidate for surgical intervention of her valvular disease, currently patient on vent, and prognosis is poor, today 02/27 patient is seen by software computer specialist and dynamometer tuner, on 02/28 patient was extubated patient is still quite somnolent, her son is present in room, discussed with him, family has decided to place under hospice care, patient is being admitted to hospice care today on 03/03 patient somnolent her son is present in the room, Review of Systems Review of Systems: ROS unobtainable: Yes unobtainable due to medical condition Exam Const: General: comfortable and no acute distress HENMT: General nose exam: Normal nares present Eyes: Sclera: sclerae normal Neck: Neck: supple Resp: Other: bilateral fair air entry with harsh breath sounds Cardio: Rate: regular rate Rhythm: regular rhythm GI: Auscultation: normal bowel sounds Skin: General skin exam: normal color Neuro: Other: patient is quite somnolent Extrem: General: normal to inspection Psych: Other: patient is quite somnolent Objective Data Vital Signs Vital Signs: Vital Signs - 24 hr 03/02/20 20:57 Pulse Rate 90 Respiratory Rate 16 Blood Pressure 146/50 H Pulse Oximetry 88 L Intake/Output Intake/Output: Intake & Output 02/29/20 03/01/20 03/02/20 03/03/20 23:59 23:59 23:59 23:59 Intake Total 240 27.5 Output Total 325 725 375 Balance -325 -485 -347.5 Meds/Results Medications: Active Medications Generic Name Dose Route Start Last Admin Trade Name Freq PRN Reason Stop Dose Admin Acetaminophen 650 mg 03/01/20 13:43 Tylenol Suppository RECTAL Q6H PRN Fever Atropine Sulfate 0 drop 03/01/20 13:42 Atropine Sulfate 1% Ophth Roselyn SUBLINGUAL Q4H PRN EXCESS SECRETIONS Bisacodyl 10 mg 03/01/20 13:43 Dulcolax Suppository RECTAL DAILY PRN NO BM IN 3 DAYS Morphine Sulfate 50 mg/ Sodium 100 mls @ 2 mls/hr 03/01
[2020-03-03] MEDS: MORPHINE SULFATE INJ (*CRX) 50 MG in SODIUM CHLORIDE 0.9% IV 95 ML IV CONT (21:25)
[2020-03-04] MEDS: CENTRAL LINE FLUSH 10 ML IV PUSH ×3 (05:08→21:02)
[2020-03-04 07:53] VITALS: BP 139/57; PULSE 89; RESP 12; TEMP 36.4; O2SAT 85
[2020-03-04] MEDS: LORazepam INJ (*CRX) 2 MG/ML VIAL 1 MG IV PUSH ×3 (12:32→21:02)
[2020-03-04] MEDS: MORPHINE SULFATE (*CRX) 2 MG/ML INJ IV PUSH ×2 (12:32→17:34)
--- NOTE | 2020-03-04 14:48 | PM.IMPN ---
Progress Note: A&P Assessment and Plan (1) Hospice care patient: Code(s): Z51.5 - Encounter for palliative care Status: Acute Additional Plan today patient is more somnolent, son tells me unable to swallow, patient is more restless on and off, unable to provide any review of symptoms, currently patient on morphine 1 mg/hr will increase to 1.5 mg. will continue to monitor patient is seen by hospice team Subjective Date/time seen: 03/04/20 14:48 today patient is more somnolent, son tells me unable to swallow, patient is more restless on and off, unable to provide any review of symptoms Review of Systems Review of Systems: ROS unobtainable: Yes unobtainable due to medical condition Exam Narrative: Exam Narrative: elderly frail somnolent Patient is comfortable, NAD HEENT: eyes are clear and none icteric LUNGS:CTA HEART: RR S1S2 ABD: BS+, Soft and nontender Lower extremities: no edema SKIN: nonjaundiced Neuro: grossly intact. Objective Data Vital Signs Vital Signs: Vital Signs - 24 hr 03/04/20 07:53 Temperature 97.6 F Pulse Rate 89 Respiratory Rate 12 Blood Pressure 139/57 L Pulse Oximetry 85 L Intake/Output Intake/Output: Intake & Output 03/01/20 03/02/20 03/03/20 03/04/20 23:59 23:59 23:59 23:59 Intake Total 240 60.5 15 Output Total 325 725 725 450 Balance -325 -485 -664.5 -435 Meds/Results Medications: Active Medications Generic Name Dose Route Start Last Admin Trade Name Freq PRN Reason Stop Dose Admin Acetaminophen 650 mg 03/01/20 13:43 Tylenol Suppository RECTAL Q6H PRN Fever Atropine Sulfate 0 drop 03/01/20 13:42 Atropine Sulfate 1% Ophth Roselyn SUBLINGUAL Q4H PRN EXCESS SECRETIONS Bisacodyl 10 mg 03/01/20 13:43 Dulcolax Suppository RECTAL DAILY PRN NO BM IN 3 DAYS Morphine Sulfate 50 mg/ Sodium 100 mls @ 3 mls/hr 03/01/20 13:45 03/04/20 05:11 Chloride IV CONT 1 mg/hr .Q24H SUNITA 2 mls/hr Infusion 1.5 MG/HR Lorazepam 1 mg 03/04/20 12:08 03/04/20 12:32 Lorazepam Inj (*Crx) 2 Mg/Ml Vial IV PUSH 1 mg Q2H PRN Administration ANXIETY/SOB Morphine Sulfate 2 mg 03/01/20 13:42 03/04/20 12:32 Morphine Sulfate Inj (*Crx) IV PUSH 2 mg Q2H PRN Administration Shortness Of Breath Sodium Chloride 10 ml 03/01/20 22:00 03/04/20 12:36 Central Line Flush IV PUSH 10 ml Q8HR SUNITA Administration Sodium Chloride 20 ml 03/01/20 14:06 Central Line Flush IV PUSH PRN PRN after blood draws
[2020-03-05 00:06] VITALS: BP 127/60; PULSE 60; RESP 12; TEMP 36.9
[2020-03-05] MEDS: LORazepam INJ (*CRX) 2 MG/ML VIAL 1 MG IV PUSH ×4 (01:24→22:01)
[2020-03-05] MEDS: CENTRAL LINE FLUSH 10 ML IV PUSH ×3 (05:13→22:01)
[2020-03-05] MEDS: MORPHINE SULFATE (*CRX) 2 MG/ML INJ IV PUSH (08:13)
--- NOTE | 2020-03-05 08:16 | PM.IMPN ---
Progress Note: A&P Additional Plan 1. hospice - son concerned about labored breathing, inform nurses they can give p.r.n. morphine - morphine drip at 3 mg per hour, p.r.n. morphine and Ativan q.2 hours. Patient appears to be comfortable on this regimen, will keep as is. Time Spent With Patient Time with patient: less than 15 minutes Subjective Date/time seen: 03/05/20 08:16 Patient seen bedside. Son is bedside. Patient is on [facility]. Patient appears comfortable on morphine drip at 3mg/hr, p.r.n. morphine and Ativan q.2 hours. Nurse notes no problems overnight, ativan was given once last night. Review of Systems Review of Systems: ROS unobtainable: Yes unobtainable due to medical condition Exam Narrative: Exam Narrative: - GENERAL: Frail elderly woman sleeping comfortably. - LUNGS: Clear to auscultation bilaterally, no wheezing, rhonchi, or rales. - CARDIOVASCULAR: Regular rate and rhythm. - ABDOMEN: Soft, non-distended - NEUROLOGIC: Unable to evaluate due to medical condition - PSYCHIATRIC: Appears comfortable. - SKIN: No rashes or lesions. Warm. Objective Data Vital Signs Vital Signs: Vital Signs - 24 hr 03/05/20 00:06 Temperature 36.9 C Pulse Rate 60 Respiratory Rate 12 Blood Pressure 127/60 Intake/Output Intake/Output: Intake & Output 03/02/20 03/03/20 03/04/20 03/05/20 23:59 23:59 23:59 23:59 Intake Total 240 60.5 45 0 Output Total 725 725 700 300 Balance -485 -664.5 -655 -300 Meds/Results Medications: Active Medications Generic Name Dose Route Start Last Admin Trade Name Freq PRN Reason Stop Dose Admin Acetaminophen 650 mg 03/01/20 13:43 Tylenol Suppository RECTAL Q6H PRN Fever Atropine Sulfate 0 drop 03/01/20 13:42 Atropine Sulfate 1% Ophth Roselyn SUBLINGUAL Q4H PRN EXCESS SECRETIONS Bisacodyl 10 mg 03/01/20 13:43 Dulcolax Suppository RECTAL DAILY PRN NO BM IN 3 DAYS Morphine Sulfate 50 mg/ Sodium 100 mls @ 3 mls/hr 03/01/20 13:45 03/04/20 21:05 Chloride IV CONT Not Given .Q24H SUNITA 1.5 MG/HR Lorazepam 1 mg 03/04/20 12:08 03/05/20 01:24 Lorazepam Inj (*Crx) 2 Mg/Ml Vial IV PUSH 1 mg Q2H PRN Administration ANXIETY/SOB Morphine Sulfate 2 mg 03/01/20 13:42 03/04/20 17:34 Morphine Sulfate (*Crx) 2 Mg/Ml Inj IV PUSH 2 mg Q2H PRN Administration Shortness Of Breath Sodium Chloride 10 ml 03/01/20 22:00 03/05/20 05:13 Central Line Flush IV PUSH 10 ml Q8HR SUNITA Administration Sodium Chloride 20 ml 03/01/20 14:06 Central Line Flush IV PUSH PRN PRN after blood draws
[2020-03-05] MEDS: MORPHINE SULFATE INJ (*CRX) 50 MG in SODIUM CHLORIDE 0.9% IV 95 ML IV CONT (08:52)
[2020-03-05 14:00] VITALS: BP 151/49; PULSE 90; RESP 16; TEMP 36.4; O2SAT 87
[2020-03-05 20:00] VITALS: PULSE 85; RESP 15; O2SAT 82
[2020-03-05 21:14] VITALS: BP 109/50; PULSE 85; RESP 15; TEMP 36; O2SAT 82
[2020-03-06] MEDS: LORazepam INJ (*CRX) 2 MG/ML VIAL 1 MG IV PUSH ×4 (02:20→19:34)
[2020-03-06 08:00] VITALS: BP 150/96; PULSE 99; RESP 12; TEMP 35.9; O2SAT 84
[2020-03-06] MEDS: MORPHINE SULFATE INJ (*CRX) 50 MG in SODIUM CHLORIDE 0.9% IV 95 ML IV CONT (08:46)
--- NOTE | 2020-03-06 11:08 | PM.IMPN ---
Progress Note: A&P Assessment and Plan (1) Palliative care by specialist: Code(s): Z51.5 - Encounter for palliative care Status: Acute Assessment and Plan: Continues to qualify for GIP status due to requiring continuous iv morphine for control of dyspnea Continue morphine drip at 3mg/hr Other palliative regimen as ordered D/w son at bedside (2) Severe mitral regurgitation: Code(s): I34.0 - Nonrheumatic mitral (valve) insufficiency Status: Acute (3) Atrial fibrillation with RVR: Code(s): I48.91 - Unspecified atrial fibrillation Status: Acute (4) Acute respiratory failure: Qualifiers: Respiratory failure complication: unspecified whether with hypoxia or hypercapnia Qualified Code(s): J96.00 - Acute respiratory failure, unspecified whether with hypoxia or hypercapnia Code(s): J96.00 - Acute respiratory failure, unspecified whether with hypoxia or hypercapnia Status: Acute Subjective Date/time seen: 03/06/20 11:08 Interval history: Sleeping. No PO intake. Review of Systems Review of Systems: ROS unobtainable: Yes unobtainable due to medical condition Exam Narrative: Exam Narrative: HEENT: Lips pink and moist, external ears intact NECK: No JVD CHEST: Clear to auscultation. Normal effort. HEART: NL S1/S2, regular, no murmur ABDOMEN: BS+ but hypoactive, soft, nontender, no mass, no bruits EXTREMITIES: No cyanosis, edema, or clubbing NEUROLOGIC: CN intact and symmetric to inspection. MUSCULOSKELETAL: Tone symmetric PSYCH: Sleeping Objective Data Vital Signs Vital Signs: Vital Signs - 24 hr 03/05/20 14:00 03/05/20 20:00 03/05/20 21:14 Temperature 97.6 F 96.8 F L Pulse Rate 90 85 85 Respiratory Rate 16 15 15 Blood Pressure 151/49 H 109/50 L Pulse Oximetry 87 L 82 L 82 L Intake/Output Intake/Output: Intake & Output 03/03/20 03/04/20 03/05/20 03/06/20 23:59 23:59 23:59 23:59 Intake Total 60.5 45 85 70 Output Total 725 700 300 575 [facility]664.5 -655 -215 -505 Meds/Results Medications: Active Medications Generic Name Dose Route Start Last Admin Trade Name Freq PRN Reason Stop Dose Admin Acetaminophen 650 mg 03/01/20 13:43 Tylenol Suppository RECTAL Q6H PRN Fever Atropine Sulfate 0 drop 03/01/20 13:42 Atropine Sulfate 1% Ophth Roselyn SUBLINGUAL Q4H PRN EXCESS SECRETIONS Bisacodyl 10 mg 03/01/20 13:43 Dulcolax Suppository RECTAL DAILY PRN NO BM IN 3 DAYS Morphine Sulfate 50 mg/ Sodium 100 mls @ 3 mls/hr 03/01/20 13:45 03/06/20 08:46 Chloride IV CONT 1.5 mg/hr .Q24H SUNITA 3 mls/hr Administration 1.5 MG/HR Lorazepam 1 mg 03/04/20 12:08 03/06/20 08:59 Lorazepam Inj (*Crx) 2 Mg/Ml Vial IV PUSH 1 mg Q2H PRN Administration ANXIETY/SOB Morphine Sulfate 2 mg 03/01/20 13:42 03/05/20 08:13 Morphine Sulfate (*Crx) 2 Mg/Ml Inj IV PUSH 2 mg Q2H PRN Administration Shortness Of Breath Sodium Chloride 10 ml 03/01/20 22:00 03/06/20 05:39 Central Line Flush IV PUSH Not Given Q8HR SUNITA Sodium Chloride 20 ml 03/01/20 14:06 Central Line Flush IV PUSH PRN PRN after blood draws
[2020-03-06] MEDS: CENTRAL LINE FLUSH 10 ML IV PUSH ×2 (14:08→21:06)
[2020-03-06 22:01] VITALS: BP 133/67; PULSE 95; RESP 16; TEMP 36.9; O2SAT 84
[2020-03-07] MEDS: LORazepam INJ (*CRX) 2 MG/ML VIAL 1 MG IV PUSH ×4 (00:35→15:19)
[2020-03-07] MEDS: ATROPINE SULFATE 1% OPHTH SOLN 5 ML BOTTLE SUBLINGUAL (00:40)
[2020-03-07] MEDS: CENTRAL LINE FLUSH 10 ML IV PUSH ×2 (05:45→15:22)
[2020-03-07] MEDS: MORPHINE SULFATE INJ (*CRX) 50 MG in SODIUM CHLORIDE 0.9% IV 95 ML IV CONT (09:06)
--- NOTE | 2020-03-07 12:07 | PM.IMPN ---
Progress Note: A&P Assessment and Plan (1) Palliative care by specialist: Code(s): Z51.5 - Encounter for palliative care Status: Acute Assessment and Plan: Continues to qualify for GIP status due to requiring continuous iv morphine for control of dyspnea Continue morphine drip at 3mg/hr Other palliative regimen as ordered D/w son at bedside (2) Severe mitral regurgitation: Code(s): I34.0 - Nonrheumatic mitral (valve) insufficiency Status: Acute (3) Atrial fibrillation with RVR: Code(s): I48.91 - Unspecified atrial fibrillation Status: Acute (4) Acute respiratory failure: Qualifiers: Respiratory failure complication: unspecified whether with hypoxia or hypercapnia Qualified Code(s): J96.00 - Acute respiratory failure, unspecified whether with hypoxia or hypercapnia Code(s): J96.00 - Acute respiratory failure, unspecified whether with hypoxia or hypercapnia Status: Acute Subjective Date/time seen: 03/07/20 12:07 Interval history: 03/07: Sleeping. No PO intake. Review of Systems Review of Systems: ROS unobtainable: Yes unobtainable due to medical condition Exam Narrative: Exam Narrative: HEENT: Lips pink and moist, external ears intact NECK: No JVD CHEST: Coarse BS Normal effort. HEART: NL S1/S2, regular, no murmur ABDOMEN: BS+ but hypoactive, soft, nontender, no mass, no bruits EXTREMITIES: No cyanosis, edema, or clubbing. Feet cool. NEUROLOGIC: CN intact and symmetric to inspection. MUSCULOSKELETAL: Tone symmetric PSYCH: Sleeping Objective Data Vital Signs Vital Signs: Vital Signs - 24 hr 03/06/20 22:01 Temperature 98.4 F Pulse Rate 95 Respiratory Rate 16 Blood Pressure 133/67 Pulse Oximetry 84 L Intake/Output Intake/Output: Intake & Output 03/04/20 03/05/20 03/06/20 03/07/20 23:59 23:59 23:59 23:59 Intake Total 45 85 70 100 Output Total 700 300 575 500 Balance -655 -215 -505 -400 Meds/Results Medications: Active Medications Generic Name Dose Route Start Last Admin Trade Name Freq PRN Reason Stop Dose Admin Acetaminophen 650 mg 03/01/20 13:43 Tylenol Suppository RECTAL Q6H PRN Fever Atropine Sulfate 0 drop 03/01/20 13:42 03/07/20 00:40 Atropine Sulfate 1% Ophth Roselyn SUBLINGUAL 2 drop Q4H PRN Administration EXCESS SECRETIONS Bisacodyl 10 mg 03/01/20 13:43 Dulcolax Suppository RECTAL DAILY PRN NO BM IN 3 DAYS Morphine Sulfate 50 mg/ Sodium 100 mls @ 3 mls/hr 03/01/20 13:45 03/07/20 09:06 Chloride IV CONT 1.5 mg/hr .Q24H SUNITA 3 mls/hr Administration 1.5 MG/HR Lorazepam 1 mg 03/04/20 12:08 03/07/20 09:08 Lorazepam Inj (*Crx) 2 Mg/Ml Vial IV PUSH 1 mg Q2H PRN Administration ANXIETY/SOB Morphine Sulfate 2 mg 03/01/20 13:42 03/05/20 08:13 Morphine Sulfate (*Crx) 2 Mg/Ml Inj IV PUSH 2 mg Q2H PRN Administration Shortness Of Breath Sodium Chloride 10 ml 03/01/20 22:00 03/07/20 05:45 Central Line Flush IV PUSH 10 ml Q8HR SUNITA Administration Sodium Chloride 20 ml 03/01/20 14:06 Central Line Flush IV PUSH PRN PRN after blood draws
[2020-03-07 14:00] VITALS: BP 134/112; PULSE 93; RESP 10; TEMP 35.2; O2SAT 69
[2020-03-07 21:08] VITALS: BP 140/49; PULSE 92; RESP 16; TEMP 35.8; O2SAT 57
--- NOTE | 2020-03-22 19:18 | PM.DDS ---
Discharge Sum: Prov Provider Primary care physician: Sudheer Meza Jr., MD Admitting provider: Anais Pressley MD Discharge Sum: Diag Contributing Factors (1) Severe mitral regurgitation: (2) Atrial fibrillation with RVR: (3) Acute respiratory failure: Discharge Sum: Summary Date and Time Date of admission: 03/01/20 12:53 Summary Details: Admitted to inpatient hospice with uncontrolled dyspnea due to severe MR with CHF, afib/rvr and not an operative candidate. Medications were titrated to comfort and patient peacefully. Additional Data Attending physician: Kapil Benavides MD
== END 2020-03-07 23:34 | disposition expired | DRG 189 ==
LOC: ANH3MEDSUR 03-07 23:34 → ANHICU 03-10 12:10
PROVIDERS: Admitting Provider Family Medicine; PCP Internal Medicine; Visit Provider Internal Medicine
DX: J96.00 Acute respiratory failure, unspecified whether with hypoxia or hypercapnia (principal); J44.1 Chronic obstructive pulmonary disease with (acute) exacerbation; Z51.5 Encounter for palliative care; I48.91 Unspecified atrial fibrillation; I34.0 Nonrheumatic mitral (valve) insufficiency
CPT/HCPCS: A9270; J2060; J2270